=== PATIENT | female | born 1955 | race African-American/Black ===

== ENCOUNTER 2017-08-13 15:49 | Outpatient (CLI) | payer OTHER ==
--- NOTE | 2017-08-13 17:36 | RAD ---
CERVICAL SPINE 5 VIEWS: Date: 08/13/17 HISTORY: Cervical spine stenosis. Pain on both arms. COMPARISON: None. FINDINGS: On the AP projection, there is evidence of osteophyte formation. Predental space is normal. Odontoid process is suboptimally evaluated. In the neutral, flexion, and extension positions, no abnormal translational motion. Multilevel degene rative change with loss of disc space height and osteophyte formation. IMPRESSION: Degenerative changes of cervical spine. Refer to cervical spine CT performed earlier today for furthe r detail. POS: [facility]
== END 2017-08-13 15:50 | disposition home or self-care (01) ==
LOC: TBSIIMAG 15:49
PROVIDERS: ATTEND Surgery
DX: G95.20 Unspecified cord compression (principal); M48.02 Spinal stenosis, cervical region; M47.812 Spondylosis without myelopathy or radiculopathy, cervical region
CPT/HCPCS: 72050

== ENCOUNTER 2017-09-10 10:32 | Outpatient (CLI) | payer OTHER ==
--- NOTE | 2017-09-10 11:33 | RAD ---
2 VIEWS CHEST: Date: 09/10/17 COMPARISON: 10/21/15. HISTORY: Dyspnea. FINDINGS: Two views of the chest show normal sized cardiomediastinal silhouette. The MediPort is unchanged in p osition. There is elevation of the right hemidiaphragm, which is new compared to the prior exam. No c onsolidation, mass, or pleural effusion seen. IMPRESSION: Interval nonspecific elevation of right hemidiaphragm without acute cardiopulmonary process. POS: [facility]
== END 2017-09-10 10:33 | disposition home or self-care (01) ==
LOC: RAD 10:32
PROVIDERS: ATTEND Internal Medicine Critical Care Medicine
DX: R06.00 Dyspnea, unspecified (principal)
CPT/HCPCS: 71046

== ENCOUNTER 2017-09-11 06:02 | Inpatient (IN) | payer OTHER ==
[2017-09-10 13:34] VITALS: BMI 20.9
[2017-09-11 06:50] LABS: #Lymphocytes 3.2 thou/uL (1.20-3.40); #Monocytes 0.4 thou/uL (0.11-0.59); #Neutrophils 3.5 thou/uL (1.40-6.50); %Basophils 0.7 % (0.0-1.0); %Eosinophils 0.2 % (0.0-10.0); %Monocytes 5.1 % (0.0-10.0); %Neutrophils 49.1 % (42.0-75.0); Hemoglobin 12.8 g/dL (12.0-16.0); Mean Corpuscular Hemoglobin 30.8 pg (27.0-31.0); Mean Corpuscular Volume 93.5 fl (81.0-99.0); Mean Platelet Volume 5.9 fL (7.4-10.4); Platelet Count 492 thou/uL (130-400); RBC Distribution Width 11.7 % (11.5-14.5); Red Blood Cell (RBC) Count 4.14 mill/uL (4.20-5.40); White Blood Cell (WBC) Count 7.1 thou/uL (4.8-10.8)
[2017-09-11] MEDS ORDERED: Bacitracin Zinc Ointment 30 gm TUBE ONE (06:53)
[2017-09-11] MEDS ORDERED: Thrombin 5000 UNITS/5 ML VIAL ONE ×2 (06:53→11:08)
[2017-09-11 06:57] LABS: PTT 25.8 SEC (22.9-36.1); Prothrombin Time 13.3 SEC (12.0-14.7)
[2017-09-11] MEDS ORDERED: Sodium Chloride 0.9% 10 ML ONE (07:00)
[2017-09-11 07:04] LABS: Anion Gap 16 mmol/L (10-20); BUN (Urea Nitrogen) 13 mg/dL (9.8-20.1); Calc. Creatinine Clearance 42 mL/min (70-130); Calcium 8.5 mg/dL (7.8-10.44); Carbon Dioxide 24 mmol/L (23-31); Chloride 108 mmol/L (98-107); Estimated GFR-MDRD 49; Glucose 88 mg/dL (80-115); Potassium 3.5 mmol/L (3.5-5.1); Sodium 144 mmol/L (136-145)
[2017-09-11] MEDS ORDERED: Phenylephrine 10 MG/NS 250 ML 250 ML ONE (07:15)
[2017-09-11] MEDS ORDERED: Famotidine/PF 20 mg/2ml Vial ONE (07:15)
[2017-09-11] MEDS ORDERED: Albuterol Sulfate HFA (OR ONLY) ONE (07:15)
[2017-09-11] MEDS ORDERED: Albumin 5% 500 ML ONE (07:15)
[2017-09-11] MEDS ORDERED: Vecuronium 10 MG VIAL ONE ×2 (07:15→11:08)
[2017-09-11] MEDS ORDERED: CEFAZOLIN/Water 2 GM/20 ML SYRINGE ONE (07:32)
[2017-09-11] MEDS ORDERED: Fentanyl 250 MCG/5 ML VIAL ONE (07:37)
[2017-09-11] MEDS ORDERED: Midazolam HCl 2 mg/2 ml Vial ONE (07:45)
[2017-09-11] MEDS ORDERED: Fentanyl 100 MCG/2 ML VIAL ONE ×4 (09:36→11:51)
[2017-09-11] MEDS ORDERED: Promethazine HCl 25 MG/ML VIAL SLOW IVP PRN (09:44)
[2017-09-11] MEDS ORDERED: Ondansetron HCl/PF 4 MG/2 ML Vial IVP PRN ×2 (09:44→10:54)
[2017-09-11] MEDS ORDERED: Morphine Sulfate 2 MG/ML SYRINGE SLOW IVP PRN (09:44)
[2017-09-11] MEDS ORDERED: Promethazine HCl 25 MG/ML VIAL IM PRN ×2 (09:44→10:54)
[2017-09-11] MEDS ORDERED: HYDROmorphone 2 MG/ML VIAL SLOW IVP PRN (09:44)
[2017-09-11] MEDS ORDERED: Meperidine HCl/PF 25 MG/ML VIAL SLOW IVP PRN (09:44)
[2017-09-11] MEDS ORDERED: HYDROmorphone 0.5 MG/0.5 ML SYRINGE ONE (10:51)
[2017-09-11] MEDS ORDERED: Fleet Enema 133 ML BOT PR PRN (10:54)
[2017-09-11] MEDS ORDERED: Mag-Al 1200 mg/1200 mg/30 ML UDCUP PO PRN (10:54)
[2017-09-11] MEDS ORDERED: traMADol HCl 50 MG TAB PO PRN (10:54)
[2017-09-11] MEDS ORDERED: Acetaminophen 325 MG TAB PO PRN (10:54)
[2017-09-11] MEDS ORDERED: Milk Of Magnesia 30 ML UDCUP PO PRN (10:54)
[2017-09-11] MEDS ORDERED: Bisacodyl 10 MG SUPP PR PRN (10:54)
[2017-09-11] MEDS ORDERED: Famotidine 20 MG TAB PO PRN (10:57)
[2017-09-11] MEDS ORDERED: busPIRone HCl 10 MG TAB PO PRN (10:57)
[2017-09-11] MEDS ORDERED: Lidocaine 1% PF 5 ML VIAL ONE (11:08)
[2017-09-11] MEDS ORDERED: CEFAZOLIN 1 GM VIAL ONE (11:08)
[2017-09-11] MEDS ORDERED: PHENYLEPHRINE-NS 100 MCG/ML 10 ML SYRINGE ONE (11:08)
[2017-09-11] MEDS ORDERED: Sterile Water 10 ML VIAL ONE (11:08)
[2017-09-11] MEDS ORDERED: PROPOFOL 200 MG/20 ML VIAL ONE (11:08)
[2017-09-11] MEDS ORDERED: Ondansetron HCl/PF 4 MG/2 ML Vial ONE (11:08)
[2017-09-11] MEDS ORDERED: Glycopyrrolate 0.2 MG/ML 5 ML SYRINGE ONE (11:08)
[2017-09-11] MEDS ORDERED: Dexamethasone 20 MG/5 ML VIAL ONE (11:08)
[2017-09-11] MEDS: HYDROcodone/Acetaminophen 7.5/325 mg Tablet PO PRN ×2 (17:06→21:28)
[2017-09-11] MEDS: CEFAZOLIN/Water 2 GM/20 ML SYRINGE SLOW IVP SCH (17:10)
[2017-09-11] MEDS: tiZANidine HCl 4 MG TAB PO PRN ×2 (17:10→21:34)
[2017-09-11] MEDS: Morphine 4 MG/ML Carpuject SLOW IVP PRN (17:36)
[2017-09-11] MEDS: Varenicline Tartrate 0.5 MG TAB PO SCH (21:29)
--- NOTE | 2017-09-11 23:30 | OP ---
DATE: 09/11/2017 OR: 11 WOUND TYPE: Type 1 wound. SURGEON: Petros Piedra M.D. HOUSEKEEPER SUPERVISOR: Marcio Silva PA-C. PREPROCEDURE DIAGNOSES: Multilevel cervical stenosis with myelopathy and neurological decline. POSTPROCEDURE DIAGNOSES: Multilevel cervical stenosis with myelopathy and neurological decline. PROCEDURES: 1. C3, C4, C5 laminectomies, partial facetectomies and foraminotomies over the C3, C4, C5 nerve root s. 2. Placement of screw claude fixation, C3, C4, C5, C6 bilaterally for stabilization. 3. Arthrodesis local bone autograft obtained from same incision and allograft, C3, C4, C5, C6. 4. Posterolateral fusion C3, C4, C5, C6. DESCRIPTION OF PROCEDURE: After informed consent was obtained from the patient, patient brought to O R 12. Proper patient pause and identification was carried out. She was placed under excellent gener al endotracheal anesthesia, positioned prone on the operating room table. Following that securing th e head to the [place] brian and the group fitness assistant department head was secured in place. Proper patient pause and celeste ntification was carried out and all appropriate points were padded. Linear yen was drawn out over t he C3, C4, C5, C6 dorsal spines. This region was sterilely cleansed, prepared, and draped. Proper p atient pause and identification was carried out. The wound was then opened with combination of sharp , monopolar, and blunt dissection to expose the C3, C4, C5, C6 segments and localization film confirm ed the area of interest. We then performed C3, C4, C5 laminectomies, partial facetectomies, foramino tomies, and then screws that were placed at C3, C4, C5, C6 for fixation. Rods were placed and final tightening occurred. We were satisfied with our construct and decompression. Hemostasis was maximiz ed throughout. There was no spinal fluid leak. Small amount of vancomycin powder was placed in the wound and the wound was closed in anatomic layers. The patient then emerged from anesthesia. Meticu lous hemostasis was maximized throughout.
[2017-09-12] MEDS: Morphine 4 MG/ML Carpuject SLOW IVP PRN (00:24)
[2017-09-12] MEDS: CEFAZOLIN/Water 2 GM/20 ML SYRINGE SLOW IVP SCH ×2 (00:26→08:39)
[2017-09-12] MEDS: HYDROcodone/Acetaminophen 7.5/325 mg Tablet PO PRN ×3 (05:08→16:51)
[2017-09-12] MEDS: Folic Acid 1 MG TAB PO SCH (07:34)
[2017-09-12] MEDS: Loratadine 10 MG TAB PO SCH (07:34)
[2017-09-12] MEDS: Varenicline Tartrate 0.5 MG TAB PO SCH ×2 (07:34→19:59)
[2017-09-12] MEDS: Magnesium Oxide 400 MG TAB PO SCH (07:34)
[2017-09-12] MEDS: Acetaminophen/Codeine 30-300mg Tablet PO PRN ×2 (07:35→19:58)
--- NOTE | 2017-09-12 10:07 | PRG ---
DATE OF SERVICE: 09/12/2017 Ms. Wiggins is postoperative day 1 from cervical laminectomy and fusion. She is doing well. She state s her hand paresthesias are already improving. She is already starting to mobilize. We will work on increasing her oral intake. I anticipate another day in the hospital.
[2017-09-12] MEDS: Docusate 100 MG CAP PO PRN (12:58)
[2017-09-12] MEDS: tiZANidine HCl 4 MG TAB PO PRN (20:00)
--- NOTE | 2017-09-13 00:47 | EKG ---
Test Reason : PREOP Blood Pressure : / mmHG Vent. Rate : 070 BPM Atrial Rate : 070 BPM P-R Int : 190 ms QRS Dur : 076 ms QT Int : 394 ms P-R-T Axes : 044 082 076 degrees QTc Int : 425 ms Normal sinus rhythm Normal ECG When compared with ECG of 21-OCT-2015 09:06, No significant change was found Confirmed by TAMIKO CARRANZA, SEhsan ([id number]) on 09/13/2017 12:46:41 AM Referred By: JACOB Confirmed By:DR. Guadalupe MORRISON MD
[2017-09-13] MEDS: HYDROcodone/Acetaminophen 7.5/325 mg Tablet PO PRN ×5 (02:07→22:10)
[2017-09-13] MEDS: Folic Acid 1 MG TAB PO SCH (08:42)
[2017-09-13] MEDS: Loratadine 10 MG TAB PO SCH (08:42)
[2017-09-13] MEDS: Magnesium Oxide 400 MG TAB PO SCH (08:42)
[2017-09-13] MEDS: tiZANidine HCl 4 MG TAB PO PRN ×3 (08:42→21:07)
[2017-09-13] MEDS: Varenicline Tartrate 0.5 MG TAB PO SCH ×2 (10:29→21:08)
[2017-09-13] MEDS: Docusate 100 MG CAP PO PRN ×2 (12:36→21:07)
--- NOTE | 2017-09-13 13:44 | PRG ---
DATE OF SERVICE: 09/13/2017 Ms. Wiggins is postoperative day 2 from multi-level cervical laminectomy and fusion. She has not yet m obilized in the ng. We are going to work in that regard. She does feel as if her hands are feelin g better with less paresthesias. She has good strength in her upper and lower extremities and I feel as if she is doing well. She has a better fitting collar now also. We will hopefully plan on dismi ssal tomorrow.
[2017-09-14] MEDS: HYDROcodone/Acetaminophen 7.5/325 mg Tablet PO PRN ×3 (03:37→11:39)
[2017-09-14] MEDS: Loratadine 10 MG TAB PO SCH (07:40)
[2017-09-14] MEDS: tiZANidine HCl 4 MG TAB PO PRN (07:41)
[2017-09-14] MEDS: Folic Acid 1 MG TAB PO SCH (07:41)
[2017-09-14] MEDS: Magnesium Oxide 400 MG TAB PO SCH (07:41)
[2017-09-14] MEDS: Varenicline Tartrate 0.5 MG TAB PO SCH (07:42)
[2017-09-14 09:04] VITALS: TEMP 98.8
[2017-09-14 09:06] VITALS: BP 142/83
--- NOTE | 2017-09-14 09:10 | PRG ---
DATE OF SERVICE: 09/14/2017 Ms. Wiggins is now and postoperative day #3, having undergone a posterior cervical laminectomy and fusi on. The patient states she has had increased neck pain today since working with therapy yesterday. She denies sharp shooting pains into the arms or into the bilateral hands. She was able to walk roug hly 250 feet yesterday with a walker and did tolerate this well. She states her hands and arms do fe el better after surgery, but she does not yet feel more steady on her feet postoperatively. She eric ins with good strength in the bilateral upper and bilateral lower extremities. She is wearing a well -fitting pediatric [place] collar. Her incision was inspected and it is clean, dry, and intact witho ut any drainage, closed with emmanuel. It was dressed and the dressing was removed and replaced for i nspection. I discussed the patient's case with her daughter and hopefully we will plan for discharge later today with better pain control. I will check back, but again plan for discharge later today.
--- NOTE | 2017-09-17 13:39 | DIS ---
DATE OF ADMISSION: 09/11/2017 DATE OF DISCHARGE: 09/14/2017 DISCHARGE DIAGNOSES: 1. Cervical stenosis with myelopathy. 2. Neurologic decline. HOSPITAL COURSE: Ms. Wiggins was admitted to [facility] to undergo C3, C4, C5 posterior opal ectomies with C3-C6 posterior lateral fusion with Dr. Piedra. The patient tolerated the procedure we ll and was kept for several overnight stays for adequate pain control. She was later discharged home with her daughter. She noted some significant posterior neck pain, but otherwise improvement in her neurologic function including improved toe walking, improved function in the bilateral hands, and im proved function in her hands. At time of discharge, she had good strength in the bilateral upper ext remities and was ambulating with a walker. At the time of discharge, the patient was placed on Levaq uin postoperatively. Appropriate outpatient followup appointments were scheduled and patient educati on material was provided.
== END 2017-09-14 12:43 | disposition home or self-care (01) | DRG 473 ==
LOC: SURG A 06:02 → 3SE 11:40
PROVIDERS: ADMIT Surgery; ATTEND Surgery
PROC: 0RG2071 Fusion of 2 or more Cervical Vertebral Joints with Autologous Tissue Substitute, Posterior Approach, Posterior Column, Open Approach (ICD-10-PCS; principal; 2017-09-11)
DX: M47.12 Other spondylosis with myelopathy, cervical region (principal); M54.12 Radiculopathy, cervical region; M48.02 Spinal stenosis, cervical region
CPT/HCPCS: 36415; 71046; 76001; 80048; 85025; 85610; 85730; 93005; 93010; A4216; C1713; C1768; G8978-GP-CK; G8979-GP-CJ; J0131; J0690; J1100; J1170; J2001; J2250; J2270; J2405; J2704; J3010; J3370; J3490; L0174; P9045; S0028

== ENCOUNTER 2017-12-12 14:28 | Outpatient (CLI) | payer OTHER ==
--- NOTE | 2017-12-12 16:21 | RAD ---
CERVICAL SPINE THREE VIEWS: 12/12/17 HISTORY: 62-year-old female with history of cervical radiculopathy. Recent fall. COMPARISON: 06/12/17. FINDINGS: Postop laminectomy and posterior fixation of C3, C4, C5 and C6 with extensive disc osteophytosis. C7 and C7-T1 are not completely seen on the lateral view. Upper odontoid and portions of C1 are obscured or partially obscured on the AP open mouth view. No significant prevertebral soft tissue swelling. IMPRESSION: Extensive dorsal postoperative changes from C3 through C6. Extensive spondylosis. No acute fracture o r dislocation involving the visualized C-spine. POS: [facility]
== END 2017-12-12 14:29 | disposition home or self-care (01) ==
LOC: TBSIIMAG 14:28
PROVIDERS: ATTEND Surgery
DX: M47.22 Other spondylosis with radiculopathy, cervical region (principal); Z98.1 Arthrodesis status
CPT/HCPCS: 72040

== ENCOUNTER 2018-02-05 10:48 | Outpatient (CLI) | payer OTHER ==
--- NOTE | 2018-02-05 12:20 | RAD ---
CHEST PA AND LATERAL: History: 62-year-old female with history of dyspnea. Comparison: 09-10-07 FINDINGS: Left subclavian catheter and injection port. Stable right hemidiaphragm elevation. Stable patchy mild increased interstitial markings bilaterally. No confluent pneumonia, overt edema, or pleural effusio n. IMPRESSION: Stable chest with some minimally increased interstitial markings bilaterally and right hemidiaphragm elevation. No new process. POS: [facility]
== END 2018-02-05 10:49 | disposition home or self-care (01) ==
LOC: RAD 10:48
PROVIDERS: ATTEND Internal Medicine Critical Care Medicine
DX: R06.00 Dyspnea, unspecified (principal)
CPT/HCPCS: 71046

== ENCOUNTER 2019-01-07 13:48 | Outpatient (CLI) | payer OTHER ==
--- NOTE | 2019-01-07 14:35 | RAD ---
CHEST PA AND LATERAL: HISTORY: Dyspnea. COMPARISON: 02/05/2018 FINDINGS: There has been interval removal of the left-sided Port-A-Cath. There is continued elevation of the r ight hemidiaphragm. The heart size is normal. No lobar consolidation is seen. There is blunting of the left costophrenic angle, which may be due to a small effusion or scarring. No lobar consolidati on or pneumothoraces is seen. POS: [facility]
== END 2019-01-07 13:49 | disposition home or self-care (01) ==
LOC: RAD 13:48
PROVIDERS: ATTEND Internal Medicine Critical Care Medicine
DX: R06.00 Dyspnea, unspecified (principal)
CPT/HCPCS: 71046

== ENCOUNTER 2019-01-14 07:01 | Inpatient (IN) | payer OTHER ==
--- NOTE | 2019-01-14 09:42 | PDOC.FPRHP ---
- History of Present Illness Chief Complaint: AMS, headache History of Present Illness: 63 y/o F with PMHx adenocarcinoma of lung s/p chemo and resection, HTN presents due to AMS and headache. She reports that she was unable to sleep at night because of a headache that started suddenly in her R frontal region around 3 am. She had associated blurry vision, L arm weakness, slurred speech, and confusion. She went to the [place] ED and was found to have brain mets. She has given dexamethasone and at the time of my evaluation the patient was less confused and her symptoms had improved some. She reports the headache is much less severe, she no longer has blurry vision, and she is now able to lift her arm above her head. She is still a little confused and was under the impression she was still in [place], but she was otherwise oriented fully. ED Course: Seen in [place] ED and found to have likely brain mets in setting of headache and AMS and given 10mg IV dexamethasone. Patient then transferred to this ED. - Allergies/Adverse Reactions Allergies Allergy/AdvReac Type Severity Reaction Status Date / Time No Known Drug Allergies Allergy Verified 09/10/17 13:23 - Home Medications Medication Instructions Recorded Confirmed Type Cetirizine HCl [Zyrtec] 10 mg PO DAILY 06/01/15 01/14/19 History Esomeprazole Magnesium [Nexium] 40 mg PO QAM-WM 06/01/15 01/14/19 History busPIRone HCl [Buspar] 10 mg PO TID PRN 06/01/15 01/14/19 History Diltiazem HCl [Cartia XT] 240 mg PO HS 09/10/17 01/14/19 History Magnesium Oxide [Mag-Oxide] 400 mg PO DAILY 09/10/17 01/14/19 History - History PMHx: 1. Adenocarcinoma of lung 2. HTN 3. GERD 4. Anxiety PSHx: L foot tendon repair, BTL, R forearm tendon repair, R elbow, L wrist tendon repair, Bilateral lung wedge resections FHx: Mom - liver disease, Dad - Throat cancer Social: daily EtOH use about 3-4 beers/day, tobacco use 1/2 ppd for 47 years. Denies drug use, but positive cocaine, marijuana, and opiate screen on UDS. PCP: Dr. Byers - Review of Systems General: denies: fever/chills, weight/appetite/sleep changes Eyes: reports: vision changes (blurry vision). denies: eye pain ENT: denies: nasal congestion, rhinorrhea Respiratory: denies: cough, shortness of breath Cardiovascular: denies: chest pain, palpitation, edema Gastrointestinal: denies: nausea, vomiting, diarrhea, constipation, abdominal pain Genitourinary: denies: incontinence, dysuria Skin: denies: rashes, lesions Musculoskeletal: denies: pain, tenderness Neurological: reports: weakness (Left arm). denies: numbness, syncope, seizure Psychological: reports: anxiety. denies: depression - Vital signs BP: 122/103 HR: 97 RR: 18 Tmax: 98.0 Pox: 97% on RA Wt: 59.9 kg - Physical Exam Constitutional: NAD, awake, alert and oriented, well developed HEENT: normocephalic and atraumatic, PERRLA, EOMI, conjunctiva clear, grossly normal vision, grossly normal hearing, normal nasal mucosa, MMM, oropharynx clear, other (swelling and tenderness in the gums on the left side) Neck: supple, FROM Heart: RRR, normal S1/S2, no murmurs/rubs/gallops, pulses present, no edema Lungs: CTAB (poor air movement), no respiratory distress, no rales/rhonchi, no wheezing Abdomen: soft, non-tender, bowel sounds present, no masses/distention Musculoskeletal: normal structure, normal tone Neurological: no focal deficit, CN II-XII intact, normal sensation, DTRs 2+ -Neurological: cerebellum intact, 5/5 muscle strength in all extremities, no clonus Skin: no rash/lesions, good turgor Heme/Lymphatic: no unusual bruising or bleeding, no purpura Psychiatric: normal mood and affect, good judgment and insight, intact recent and remote memory FMR H&P: Results - Labs Lab results: Laboratory Tests 01/14/19 01/14/19 01/14/19 04:18 04:18 04:18 WBC 9.3 Hgb 13.2 Hct 40.8 MCV 89.1 Plt Count 357 PT INR APTT Sodium 132 L Potassium 3.9 Chloride 99 Carbon Dioxide 20 L Anion Gap 17 BUN 15 Creatinine 1.47 H Estimated GFR (MDRD) 43 Glucose 107 Calcium 9.4 Total Bilirubin 0.2 AST 20 ALT 14 Alkaline Phosphatase 76 Creatine Kinase Troponin I Less than 0.010 TSH 3rd Generation Urine Opiates Screen Ur Oxycodone Screen Urine Methadone Screen Ur Propoxyphene Screen Ur Barbiturates Screen Ur Tricyclics Screen Ur Phencyclidine Scrn Ur Amphetamines Screen U Methamphetamines Scrn U Benzodiazepines Scrn U Cocaine Metab Screen U Cannabinoids Screen 01/14/19 01/14/19 01/14/19 04:18 04:18 04:18 WBC Hgb Hct MCV Plt Count PT 13.0 INR 1.0 APTT 30.8 Sodium Potassium Chloride Carbon Dioxide Anion Gap BUN Creatinine Estimated GFR (MDRD) Glucose Calcium Total Bilirubin AST ALT Alkaline Phosphatase Creatine Kinase 68 Troponin I TSH 3rd Generation 2.5697 Urine Opiates Screen Ur Oxycodone Screen Urine Methadone Screen Ur Propoxyphene Screen Ur Barbiturates Screen Ur Tricyclics Screen Ur Phencyclidine Scrn Ur Amphetamines Screen U Methamphetamines Scrn U Benzodiazepines Scrn U Cocaine Metab Screen U Cannabinoids Screen 01/14/19 Unknown WBC Hgb Hct MCV Plt Count PT INR APTT Sodium Potassium Chloride Carbon Dioxide Anion Gap BUN Creatinine Estimated GFR (MDRD) Glucose Calcium Total Bilirubin AST ALT Alkaline Phosphatase Creatine Kinase Troponin I TSH 3rd Generation Urine Opiates Screen Detected H Ur Oxycodone Screen Not Detected Urine Methadone Screen Not Detected Ur Propoxyphene Screen Not Detected Ur Barbiturates Screen Not Detected Ur Tricyclics Screen Not Detected Ur Phencyclidine Scrn Not Detected Ur Amphetamines Screen Not Detected U Methamphetamines Scrn Not Detected U Benzodiazepines Scrn Not Detected U Cocaine Metab Screen Detected H U Cannabinoids Screen Detected H - EKG Interpretation EKst degree AV block, normal rate, no ST/T wave changes - Radiology Interpretation CT scan - head Status: report reviewed by me Additional comment: Hypodense nodule measuring 1.2 cm in cortex of R parietal lobe with vasogenic edema. Focal subcortical vasogenic edema in L frontal lobe. Worsening of chronic small vessel ischemia. FMR H&P: A/P - Problem List (1) Acute encephalopathy Current Visit: Yes Status: Acute Code(s): G93.40 - ENCEPHALOPATHY, UNSPECIFIED (2) Metastatic cancer to brain Current Visit: Yes Status: Acute Code(s): C79.31 - SECONDARY MALIGNANT NEOPLASM OF BRAIN (3) Hyponatremia Current Visit: Yes Status: Acute Code(s): E87.1 - HYPO-OSMOLALITY AND HYPONATREMIA (4) Lung cancer Current Visit: No Status: Acute Code(s): C34.90 - MALIGNANT NEOPLASM OF UNSP PART OF UNSP BRONCHUS OR LUNG (5) Tobacco abuse Current Visit: Yes Status: Acute Code(s): Z72.0 - TOBACCO USE (6) Alcohol abuse Current Visit: Yes Status: Acute Code(s): F10.10 - ALCOHOL ABUSE, UNCOMPLICATED (7) Drug abuse Current Visit: Yes Status: Acute Code(s): F19.10 - OTHER PSYCHOACTIVE SUBSTANCE ABUSE, UNCOMPLICATED (8) Hypertension Current Visit: Yes Status: Acute Code(s): I10 - ESSENTIAL (PRIMARY) HYPERTENSION (9) Anxiety Current Visit: Yes Status: Acute Code(s): F41.9 - ANXIETY DISORDER, UNSPECIFIED (10) CKD (chronic kidney disease) stage 3, GFR 30-59 ml/min Current Visit: Yes Status: Acute Code(s): N18.3 - CHRONIC KIDNEY DISEASE, STAGE 3 (MODERATE) (11) Dental abscess Current Visit: Yes Status: Acute Code(s): K04.7 - PERIAPICAL ABSCESS WITHOUT SINUS - Plan Acute Encephalopathy 2/2 new brain mets with vasogenic edema found on CT scan. Patient's symptoms improved after loading dose of 10mg dexamethasone. -Continue dexamethasone 4mg q6h -NPO pending swallow eval -Monitor for changes in neurologic status with q4h neuro checks New Brain Metastases with Vasogenic Edema -Dr. Desai with oncology was consulted by the ED, appreciate recs -Dexamethasone as above -Possible neurosurgery consult pending onc recs -MRI brain with and without contrast to further characterize lesions Lung Cancer Patient reports chemotherapy followed by resection. She states she had two masses, one on each side of her lungs. She reports that they noted some lymph nodes and removed some during her surgery in [place], but she thinks she may have had some found later that were cancerous. She is unsure what stage her cancer was. Per the patients PCP it is Adenocarcinoma. She has an extensive tobacco smoking hx. -Dr. Desai with onc was consulted, appreciate recs Hyponatremia Could be 2/2 SIADH from malignancy. It is mild at this time. -Will monitor -Check urine sodium and osm Hypertension -Continue home diltiazem GERD -Continue PPI Anxiety -Continue busbar CKDIII Stable -Will monitor Polysubstance Abuse Patient positive for cocaine, marijuana, and opioids on UDS and has tobacco and EtOH abuse hx. -ASE protocol -Nicotine patches -Substance cessation counseling Recurrent dental abscesses Currently complaining of one. Apparently according to her PCP, she cannot afford dental care so she gets these frequently and then dose a course of amoxicillin and they improve. Her PCP prescribed amoxicillin yesterday, but she hasn't started it yet. -Continue amoxicillin Code status: Full VTE ppx: Lovenox Dispo: Admit to oncology Prognosis: poor Disposition/LOS: Admit to oncology Length of stay likely greater than 2 days
[2019-01-14] MEDS ORDERED: Gadobenate Dimeglumine 529 MG/1 ML (20ML VIAL) ONE (11:35)
[2019-01-14] MEDS ORDERED: Acetaminophen 325 MG TAB PO PRN (12:23)
[2019-01-14 12:59] VITALS: BMI 20.4
[2019-01-14] MEDS ORDERED: Nicotine 14 MG PATCH TD SCH ×2 (14:00→16:30)
[2019-01-14] MEDS: busPIRone HCl 10 MG TAB PO PRN (15:17)
[2019-01-14] MEDS: Dexamethasone 4 mg/ml Vial SLOW IVP SCH ×2 (15:18→20:49)
[2019-01-14] MEDS: AMOXicillin 250 MG CAP PO SCH ×2 (15:18→20:49)
--- NOTE | 2019-01-14 17:09 | MRI ---
MRI BRAIN WITH AND WITHOUT CONTRAST: DATE: 01/14/2019 HISTORY: 63-year-old female with lung cancer and abnormal brain CT, suspicious for brain metastasis. COMPARISON: No prior brain MRIs TECHNIQUE: Multiplanar, multisequence MRI of the brain performed pre- and post-IV injection of gadolinium based contrast agent. FINDINGS: Heterogeneously enhancing, partially necrotic 16 x 14 x 12 mm right posterior parietal intra-axial ma ss with surrounding vasogenic edema. Similarly enhancing left lateral parietal intra-axial mass measuring 10 x 9 x 9 mm, with surrounding vasogenic edema. Faint, small, patchy focus of enhancement measuring approximately 6 x 4 mm in the lateral aspect of t he right anterior temporal lobe, visible only on the T1 MPR sequence and its coronal and sagittal reconstructions, not on the conventional T1-weighted axial image. Uncertain whether this represents a metastatic focus, capillary telangiectasia, or artifact. No mass effect or midline shift. There is minimal hemorrhage within the right parietal metastatic les ion, but not elsewhere. No obstructive hydrocephalus. Moderate chronic ischemic white matter changes of the periventricular white matter and deep white matter. Chronic ischemic white matter [place] [facility] [place]. No acute infarction. IMPRESSION: 1) at least 2 metastatic brain lesions, one in each parietal lobe. 2.) Moderate chronic ischemic white matter changes due to microvascular atherosclerosis.
[2019-01-15] MEDS: Dexamethasone 4 mg/ml Vial SLOW IVP SCH ×4 (02:14→20:17)
[2019-01-15 06:28] LABS: #Lymphocytes 1.3 thou/uL (1.20-3.40); #Monocytes 0.1 thou/uL (0.11-0.59); #Neutrophils 10.5 thou/uL (1.40-6.50); %Basophils 0.1 % (0.0-1.0); %Eosinophils 0.2 % (0.0-10.0); %Lymphocytes 10.8 % (21.0-51.0); %Monocytes 0.5 % (0.0-10.0); %Neutrophils 88.5 % (42.0-75.0); Hemoglobin 14.1 g/dL (12.0-16.0); Mean Corpuscular HGB CONC 34.7 g/dL (32.0-36.0); Mean Corpuscular Volume 89.4 fL (78.0-98.0); Mean Platelet Volume 7.1 fL (7.4-10.4); Platelet Count 349 thou/uL (130-400); RBC Distribution Width 11.8 % (11.5-14.5); Red Blood Cell (RBC) Count 4.56 mill/uL (4.20-5.40); White Blood Cell (WBC) Count 11.8 thou/uL (4.8-10.8)
[2019-01-15 06:48] LABS: Anion Gap 16 mmol/L (10-20); BUN (Urea Nitrogen) 15 mg/dL (9.8-20.1); Calc. Creatinine Clearance 46 mL/min (70-130); Calcium 10.2 mg/dL (7.8-10.44); Carbon Dioxide 20 mmol/L (23-31); Chloride 104 mmol/L (98-107); Estimated GFR-MDRD 57; Glucose 139 mg/dL (80-115); Potassium 3.7 mmol/L (3.5-5.1); Sodium 136 mmol/L (136-145)
--- NOTE | 2019-01-15 07:42 | PDOC.EVN ---
Addendum - Attending - Attending Attestation Date/Time: 01/15/19 1195 I personally evaluated the patient and discussed the management with Dr. Currie. I agree with the History, Examination, Assessment and Plan documented in her progress note with any addition or exceptions noted below. Patient improved after decadron yesterday. Improvement in headache and neuro function. MRI confirmed b/l parietal lobe mets, likely from her lung adenocarcinoma. Oncology already consulted, will likely get Rad Onc and NSGY on board today to see if any inpatient interventions can be pursued.
[2019-01-15] MEDS ORDERED: traMADol HCl 50 MG TAB PO PRN (09:11)
--- NOTE | 2019-01-15 09:17 | PDOC.FM ---
- Subjective Subjective: Patient reports that mental status changes have improved. Denies any further confusion, weakness, blurry vision, slurred speech. Does report a severe headache that is not relieved with tylenol. - Objective MAR Reviewed: Yes Vital Signs & Weight: Vital Signs (12 hours) Temp Pulse Resp BP Pulse Ox 01/15/19 07:41 98.3 F 83 16 131/82 97 01/15/19 04:00 98.0 F 71 18 134/85 99 01/15/19 00:06 98.3 F 101 H 21 H 116/71 100 Weight Weight 59.08 kg I&O: 01/14/19 01/15/19 01/16/19 06:59 06:59 06:59 Intake Total 500 Output Total 300 Balance 200 Result Diagrams: 01/15/19 05:26 01/15/19 05:26 Phys Exam - Physical Examination Constitutional: NAD HEENT: moist MMs, sclera anicteric Respiratory: no wheezing, no rales, no rhonchi, clear to auscultation bilateral Cardiovascular: RRR, no significant murmur, no rub Gastrointestinal: soft, non-tender, positive bowel sounds Musculoskeletal: no edema, pulses present Neurological: non-focal, normal sensation, moves all 4 limbs Psychiatric: normal affect, A&O x 3 Skin: normal turgor, cap refill <2 seconds Dx/Plan (1) Acute encephalopathy Code(s): G93.40 - ENCEPHALOPATHY, UNSPECIFIED Status: Resolved (2) Metastatic cancer to brain Code(s): C79.31 - SECONDARY MALIGNANT NEOPLASM OF BRAIN Status: Acute (3) Hyponatremia Code(s): E87.1 - HYPO-OSMOLALITY AND HYPONATREMIA Status: Acute (4) Lung cancer Code(s): C34.90 - MALIGNANT NEOPLASM OF UNSP PART OF UNSP BRONCHUS OR LUNG Status: Acute (5) Tobacco abuse Code(s): Z72.0 - TOBACCO USE Status: Acute (6) Alcohol abuse Code(s): F10.10 - ALCOHOL ABUSE, UNCOMPLICATED Status: Acute (7) Drug abuse Code(s): F19.10 - OTHER PSYCHOACTIVE SUBSTANCE ABUSE, UNCOMPLICATED Status: Acute (8) Hypertension Code(s): I10 - ESSENTIAL (PRIMARY) HYPERTENSION Status: Acute (9) Anxiety Code(s): F41.9 - ANXIETY DISORDER, UNSPECIFIED Status: Acute (10) CKD (chronic kidney disease) stage 3, GFR 30-59 ml/min Code(s): N18.3 - CHRONIC KIDNEY DISEASE, STAGE 3 (MODERATE) Status: Acute (11) Dental abscess Code(s): K04.7 - PERIAPICAL ABSCESS WITHOUT SINUS Status: Acute - Plan Plan: Acute Encephalopathy, improved 2/2 new brain mets with vasogenic edema found on CT scan. Patient's symptoms improved after loading dose of 10mg dexamethasone. -Continue dexamethasone 4mg q6h -Consulted Neurosurgery, appreciate recs -Monitor for changes in neurologic status New Brain Metastases with Vasogenic Edema Brain MRI confirmed two masses with surrounding vasogenic edema -Dr. Desai with oncology was consulted by the ED, appreciate recs -Dr. Joy with neurosurgery was consulted, appreciate recs -Dexamethasone as above Lung Cancer Patient reports chemotherapy followed by resection. She states she had two masses, one on each side of her lungs. She reports that they noted some lymph nodes and removed some during her surgery in [place], but she thinks she may have had some found later that were cancerous. She is unsure what stage her cancer was. Per the patients PCP it is Adenocarcinoma. She has an extensive tobacco smoking hx. -Dr. Desai with onc was consulted, appreciate recs Hyponatremia, resolved Could be 2/2 SIADH from malignancy. It is mild at this time. -Will monitor Hypertension -Continue home diltiazem GERD -Continue PPI Anxiety -Continue busbar CKDIII Stable -Will monitor Polysubstance Abuse Patient positive for cocaine, marijuana, and opioids on UDS and has tobacco and EtOH abuse hx. -ASE protocol -Nicotine patches -Substance cessation counseling Recurrent dental abscesses Currently complaining of one. Apparently according to her PCP, she cannot afford dental care so she gets these frequently and then dose a course of amoxicillin and they improve. Her PCP prescribed amoxicillin the day prior to admission -Continue amoxicillin Code status: Full VTE ppx: Lovenox Dispo: pending oncology and neurosurgery recs
[2019-01-15] MEDS: Loratadine 10 MG TAB PO SCH (09:21)
[2019-01-15] MEDS: AMOXicillin 250 MG CAP PO SCH ×3 (09:21→20:18)
[2019-01-15] MEDS: Magnesium Oxide 400 MG TAB PO SCH (09:21)
[2019-01-15] MEDS: Enoxaparin Sodium 40 MG/0.4 ML SYRINGE SC SCH (09:22)
[2019-01-15] MEDS: Acetaminophen 500 MG TAB PO SCH ×2 (11:44→18:06)
[2019-01-15] MEDS: busPIRone HCl 10 MG TAB PO PRN (11:44)
--- NOTE | 2019-01-15 14:52 | HP ---
I did this physical exam on 01/14 at approximately 12 o'clock noon. I examined the patient. I discussed the case with Dr. Aparna Currie and agree with her assessment and plan. HISTORY OF PRESENT ILLNESS: Briefly, Ms. Wiggins is a pleasant 63-year-old black female with a history of adenocarcinoma of the lung with chemotherapy and resection. She presented to an [facility] ER with severe headache and altered mental status. CT [facility] demonstrated possible brain mets from her lung malignancy. She was transferred to our institution for further treatment. By the time I examine Ms. Wiggins, she had a dose of dexamethasone and her headache was much improved. She had no obvious focal deficits and her sensorium was much clearer. PHYSICAL EXAMINATION: VITAL SIGNS: Her blood pressure was 122/98, her pulse rate was 88 and regular. She was afebrile. Respirations are 18 and not labored. GENERAL: As stated, she was awake, alert, and in no acute distress. CARDIAC: Heart rhythm is regular without gallop or murmur noted. LUNGS: Clear. No rales, rhonchi, or wheezes. No evidence of respiratory distress. ABDOMEN: Flat and soft. No guarding, rebound, or rigidity. NEUROLOGICAL: She had no focal deficits and appeared to have a clear sensorium. EXTREMITIES: No edema. LABORATORY DATA: CBC was 11,800, hemoglobin 14.1, hematocrit 40.8 with an MCV of 89. Her chemistry, sodium 136, potassium 3.7, chloride 104, bicarb 20, BUN 15, and creatinine 1.16. 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 PLAN: Admit. Continue dexamethasone. Consult with Oncology. Job ID: [id number]
[2019-01-15] MEDS ORDERED: Nicotine 14 MG PATCH TD SCH (18:30)
[2019-01-15] MEDS: levETIRAcetam 500 MG TAB PO SCH (20:20)
[2019-01-16] MEDS: Acetaminophen 500 MG TAB PO SCH ×2 (00:34→05:32)
[2019-01-16] MEDS: Dexamethasone 4 mg/ml Vial SLOW IVP SCH ×2 (02:43→09:45)
[2019-01-16 05:43] LABS: #Lymphocytes 1.2 thou/uL (1.20-3.40); #Monocytes 0.3 thou/uL (0.11-0.59); #Neutrophils 15.6 thou/uL (1.40-6.50); %Basophils 0.1 % (0.0-1.0); %Eosinophils 0.1 % (0.0-10.0); %Lymphocytes 6.9 % (21.0-51.0); %Monocytes 1.7 % (0.0-10.0); %Neutrophils 91.2 % (42.0-75.0); Hemoglobin 12.6 g/dL (12.0-16.0); Mean Corpuscular HGB CONC 33.9 g/dL (32.0-36.0); Mean Corpuscular Hemoglobin 30.8 pg (27.0-31.0); Mean Corpuscular Volume 90.7 fL (78.0-98.0); Mean Platelet Volume 7.1 fL (7.4-10.4); Platelet Count 333 thou/uL (130-400); RBC Distribution Width 11.7 % (11.5-14.5); Red Blood Cell (RBC) Count 4.09 mill/uL (4.20-5.40); White Blood Cell (WBC) Count 17.1 thou/uL (4.8-10.8)
[2019-01-16 06:11] LABS: Anion Gap 11 mmol/L (10-20); BUN (Urea Nitrogen) 23 mg/dL (9.8-20.1); Calc. Creatinine Clearance 41 mL/min (70-130); Calcium 9.9 mg/dL (7.8-10.44); Carbon Dioxide 25 mmol/L (23-31); Chloride 103 mmol/L (98-107); Estimated GFR-MDRD 50; Glucose 149 mg/dL (80-115); Potassium 3.8 mmol/L (3.5-5.1); Sodium 135 mmol/L (136-145)
--- NOTE | 2019-01-16 06:16 | PDOC.FM ---
- Subjective Subjective: Patient feeling well this AM. Denies any new weakness, numbness, vision changes. Reports her headache has resolved. Tolerating PO without N/V. - Objective MAR Reviewed: Yes Vital Signs & Weight: Vital Signs (12 hours) Temp Pulse Resp BP BP Pulse Ox 01/16/19 04:30 120/75 01/16/19 03:12 97.8 F 67 20 120/75 100 01/16/19 01:00 121/76 01/15/19 23:32 98.2 F 78 20 121/76 99 01/15/19 21:29 113/74 01/15/19 20:19 88 133/74 01/15/19 20:00 99 01/15/19 19:30 98.1 F 88 20 113/74 98 Weight Admit Weight 59.08 kg Weight 59.08 kg I&O: 01/14/19 01/15/19 01/16/19 06:59 06:59 06:59 Intake Total 500 1720 Output Total 300 Balance 200 1720 Result Diagrams: 01/16/19 05:08 01/16/19 05:08 Phys Exam - Physical Examination Constitutional: NAD HEENT: moist MMs, sclera anicteric Respiratory: no wheezing, no rales, no rhonchi, clear to auscultation bilateral Cardiovascular: RRR, no significant murmur, no rub Gastrointestinal: soft, non-tender, no distention, positive bowel sounds Musculoskeletal: no edema, pulses present Neurological: non-focal, moves all 4 limbs Psychiatric: normal affect, A&O x 3 Skin: normal turgor, cap refill <2 seconds Dx/Plan (1) Acute encephalopathy Code(s): G93.40 - ENCEPHALOPATHY, UNSPECIFIED Status: Resolved (2) Metastatic cancer to brain Code(s): C79.31 - SECONDARY MALIGNANT NEOPLASM OF BRAIN Status: Acute (3) Hyponatremia Code(s): E87.1 - HYPO-OSMOLALITY AND HYPONATREMIA Status: Acute (4) Lung cancer Code(s): C34.90 - MALIGNANT NEOPLASM OF UNSP PART OF UNSP BRONCHUS OR LUNG Status: Acute (5) Tobacco abuse Code(s): Z72.0 - TOBACCO USE Status: Acute (6) Alcohol abuse Code(s): F10.10 - ALCOHOL ABUSE, UNCOMPLICATED Status: Acute (7) Drug abuse Code(s): F19.10 - OTHER PSYCHOACTIVE SUBSTANCE ABUSE, UNCOMPLICATED Status: Acute (8) Hypertension Code(s): I10 - ESSENTIAL (PRIMARY) HYPERTENSION Status: Acute (9) Anxiety Code(s): F41.9 - ANXIETY DISORDER, UNSPECIFIED Status: Acute (10) CKD (chronic kidney disease) stage 3, GFR 30-59 ml/min Code(s): N18.3 - CHRONIC KIDNEY DISEASE, STAGE 3 (MODERATE) Status: Acute (11) Dental abscess Code(s): K04.7 - PERIAPICAL ABSCESS WITHOUT SINUS Status: Acute - Plan Plan: Acute Encephalopathy, improved 2/2 new brain mets with vasogenic edema found on CT scan. Patient's symptoms improved after loading dose of 10mg dexamethasone. -Continue dexamethasone -Consulted Neurosurgery, appreciate recs -Monitor for changes in neurologic status New Brain Metastases with Vasogenic Edema Brain MRI confirmed two masses with surrounding vasogenic edema -Dr. Desai with oncology was consulted. Discussed case with her and she recommended patient to be discharged with outpatient workup including staging and radiation per Dr. Sanchez. -Spoke to Dr. Sanchez who said he will set her up with outpatient appt in his office tomorrow. Will proceed with radiation therapy. -Dr. Joy with neurosurgery was consulted, started keppra for seizure ppx. Recommended no surgery at this time. -Dexamethasone Lung Cancer Patient reports chemotherapy followed by resection. She states she had two masses, one on each side of her lungs. She reports that they noted some lymph nodes and removed some during her surgery in [place], but she thinks she may have had some found later that were cancerous. She is unsure what stage her cancer was. Per the patients PCP it is Adenocarcinoma. She has an extensive tobacco smoking hx. -Dr. Desai with onc was consulted, will see patient outpatient. Hyponatremia, resolved Could be 2/2 SIADH from malignancy. It is mild at this time. -Will monitor Hypertension Stable -Continue home diltiazem GERD -Continue PPI Anxiety -Continue busbar CKDIII Stable -Will monitor Polysubstance Abuse Patient positive for cocaine, marijuana, and opioids on UDS and has tobacco and EtOH abuse hx. -ASE protocol -Nicotine patches -Substance cessation counseling Recurrent dental abscesses Currently complaining of one. Apparently according to her PCP, she cannot afford dental care so she gets these frequently and then dose a course of amoxicillin and they improve. Her PCP prescribed amoxicillin the day prior to admission -Continue amoxicillin Code status: Full VTE ppx: Lovenox Dispo: d/c today with po dexamethasone and f/u with Dr. Desai and Dr. Sanchez outpatient Addendum - Attending - Attending Attestation Date/Time: 01/16/19 9961 I personally evaluated the patient and discussed the management with Dr. Currie. I agree with the History, Examination, Assessment and Plan documented above with any addition or exceptions noted below. Patient reports feeling significantly improved. Continue on Decadron for brain mets. Continue pain control. Awaiting recs from Oncology and NSGY and further mgmt per those recs.
--- NOTE | 2019-01-16 07:12 | PRG ---
DATE OF SERVICE: 01/16/2019 I personally interviewed and examined the patient, reviewed documentation of Mallory Guerra PA-C. Date of service was 01/15/2019 and 01/16/2019. I am following up with Ms. Wiggins this morning after seeing her yesterday afternoon. I discussed the case Dr. Duran Sanchez, Radiation Oncology and Medical Oncology Services. Ms. Wiggins is a 63-year-old woman with known bilateral upper lobe adenocarcinoma of the lung, treated with thoracoscopic wedge resections and chemotherapy. She got no radiation. On the second surgery, there was a positive lymphovascular invasion. During the first surgery, there was question whether the first lymph node was positive or not. It was felt to be lung tissue rather than a lymph node. She has been undergoing CT and PET scan surveillance. From the history, Ms. Wiggins was found with altered mental status. She slowly cleared during her hospital evaluation. I think she was postictal from a seizure. Imaging of the brain revealed two and possibly three areas of concern for metastatic disease. The two obvious areas were the anterior parietal lobe on the left and the posterior parietal lobe on the right. Questionable areas of temporal lobe on the left. There is some vasogenic edema surrounding, but not a significant amount. These do not look like abscesses. By the time I met her, Ms. Wiggins's neurological examination was back to normal. She is awake and conversant and had no focal neurological deficit. I had a long discussion with her. If our Oncology colleagues are satisfied that this is metastatic disease and do not need tissue to continue treatment, then I would recommend stereotactic radiosurgery for the two larger lesions and consideration of stereotactic radiosurgery to the questionable area in the left temporal lobe. If tissues needed, the right posterior occipital lobe lesion would be the safest to remove. Job ID: [id number]
--- NOTE | 2019-01-16 09:02 | CON ---
DATE OF CONSULTATION: HISTORY OF PRESENT ILLNESS: Ms. Wiggins is a 63-year-old female, she was brought to [facility] following an emergency room visit to [facility] due to altered mental status. While at the [facility], a CT head was done showing 2 brain lesions. She was transferred to [facility]. An MRI of the brain was done today which showed 2 lesions in each parietal lobe with surrounding vasogenic edema. Neurosurgery has been consulted regarding these lesions. The patient has history of adenocarcinoma. She has been treated with chemotherapy at [place] and had surgery in [place]. Upon admission, it was also learned that the patient was positive for cocaine, opiates, and THC. The patient was given dexamethasone as well, started on steroids and today her cognition has improved. She denies complaints. Denies weakness. No changes in vision, changes in hearing. Speech is spontaneous and fluent. She states that she had a headache yesterday, but it is gone today when I see her in her hospital room. She is moving all extremities well. There are no focal motor or sensory deficits. REVIEW OF SYSTEMS: A 10-point review of systems has been completed and is negative other than stated in the above HPI. PAST MEDICAL HISTORY: Gastrointestinal disease, GERD, alcohol abuse, hypertension, history of stage IV adenocarcinoma of the lung. PAST SURGICAL HISTORY: Bilateral lung resection, orthopedic surgery of the left foot, tendon repair, surgery for tubal ligation, right elbow, right wrist tendon repair, left forearm repair, history of neck surgery. PSYCHIATRIC HISTORY: The patient states anxiety and panic attacks. SOCIAL HISTORY: The patient drinks every day, less than 5 drinks per day. Denies drug use. Currently uses tobacco, cigarettes, smoked for 30 years, states a half pack a day. Lives at home with . The patient denies drug use; however, urine drug screen positive for opiates, cocaine, and THC. PHYSICAL EXAMINATION: VITAL SIGNS: Temperature 98.5, heart rate 96, respirations 22, O2 saturations 100% on room air, blood pressure 125/70. CONSTITUTIONAL: The patient is awake and alert. She is oriented x3. She is afebrile and does not appear to be in any visible distress. HEENT: Head is normocephalic and atraumatic. Pupils are equal, round, and reactive to light. Extraocular movements are intact. Hearing is intact. Moist mucous membranes. RESPIRATIONS: Normal work of breathing on room air. MOTOR: The patient is moving all 4 extremities well. She has good strength in deltoids, biceps, triceps, it service continuity supervisor strength, hip flexion, knee flexion, dorsiflexion, plantar flexion, and EHL bilaterally. There is no sensory loss noted. NEUROLOGIC: The patient is awake, alert, and oriented x3. GCS 15. Cranial nerves 2 through 12 are tested and intact. There are no sensory or motor deficits noted. Speech is spontaneous and fluent. Normal attention, normal fund of knowledge, slight difficulty with . IMAGING: MRI of the brain shows 2 metastatic brain lesions, 1 in each parietal lobe, there is associated vasogenic edema. There is no midline shift. There is no obstructive hydrocephalus. There are moderate chronic ischemic white matter changes and microvascular atherosclerosis. ASSESSMENT AND PLAN: The patient has 2 small lesions in both parietal lobes, possibly metastatic disease from history of adenocarcinoma. We recommend that she follows up with her oncologist the one who has treated her in the past. If this is not an option, we would need further information from the treating physician. If there are any further questions, please contact Neurosurgery. Job ID: [id number]
[2019-01-16] MEDS: busPIRone HCl 10 MG TAB PO PRN (09:45)
[2019-01-16] MEDS: Loratadine 10 MG TAB PO SCH (09:45)
[2019-01-16] MEDS: Enoxaparin Sodium 40 MG/0.4 ML SYRINGE SC SCH (09:45)
[2019-01-16] MEDS: levETIRAcetam 500 MG TAB PO SCH (09:46)
[2019-01-16] MEDS: Magnesium Oxide 400 MG TAB PO SCH (09:46)
[2019-01-16] MEDS: AMOXicillin 250 MG CAP PO SCH (09:46)
[2019-01-16 14:20] VITALS: BP 132/86; TEMP 98.1
--- NOTE | 2019-01-16 16:01 | CON ---
DATE OF CONSULTATION: 01/16/2019 REASON FOR CONSULTATION: Ms. Wiggins is a 63-year-old female who has been diagnosed with brain metastasis from her lung cancer. I was asked to see her to discuss her options for treatment. HISTORY OF PRESENT ILLNESS: Ms. Wiggins was initially diagnosed with an adenocarcinoma in the right upper lobe of the lung. This was in 2014. She was seen by Dr. Engel and underwent staging with PET scan. Apparently, she had a mass in both the right upper lobe of the lung and in the left upper lobe of the lung. There was also some concern for possible lymphangitic spread. She was treated with chemotherapy, and essentially was felt to have stable disease over a period of about two years. Subsequently, Dr. Engel closed her practice and she eventually saw Dr. Verdugo in Cardiothoracic Surgery in [place]. This was sometime about mid 2016. I do not have records from that visit, but ultimately, she underwent mediastinal lymph node sampling, which was negative. She apparently had resection bilaterally of her lung cancer. Since that time, she has been doing well and has not had any followup with Oncology. On Sunday, she began experiencing headaches and eventually had an episode, where she "passed out." She is having trouble with her vision and with confusion, but denies any problems with seizures or nausea or vomiting. She was taken by her to the emergency room in [place], where a CT scan of the head suggested possible brain metastasis with vasogenic edema. She was started on dexamethasone and admitted here at [facility] in [place] for workup and evaluation. Yesterday, she underwent an MRI of the brain, which showed a 1.6 cm enhancing mass in the right posterior parietal area with vasogenic edema as well as a 1 cm enhancing mass in the left parietal area with vasogenic edema. There was a faint patchy focus of enhancement in the lateral aspect of the right anterior temporal lobe of unknown significance. No other lesion was identified. She was seen by Dr. Joy, and I have been asked to see the patient by Dr. Joy to discuss treatment options. He did favor radiosurgery. Since being on dexamethasone, she is much improved. She is having no headaches or seizure difficulty. Her vision is normal and she is having no confusion. She denies any other areas of pain, although admits that her appetite has been decreased recently and had an 8-pound weight loss. She has no shortness of breath or orthopnea. She voices no other complaints. PAST MEDICAL HISTORY: 1. Lung cancer as mentioned above. 2. Chronic renal insufficiency, apparently secondary to a CT scan contrast in the past. She does see a director of consumer marketing here in town. 3. Hypertension. 4. Anxiety disorder. 5. GE reflux disease. 6. Status post bilateral tubal ligation. 7. Status post foot and arm surgery. MEDICATIONS: 1. Dexamethasone. 2. Protonix. 3. BuSpar. 4. Cardizem. 5. Keppra. 6. Nicotine patch. ALLERGIES: NO KNOWN MEDICAL ALLERGIES. SOCIAL HISTORY: She admits that she still smokes up to 1/2 pack per day. She has tried to quit and is starting the patches. She wanted to try Chantix, but Medicaid would not pay for this. She denies any recent drug use, although admits to drug use in the past. She drinks 2 to 3 beers per day. She lives in [place], [place] with her . She is disabled. FAMILY HISTORY: Her mother at age 74 from liver cancer. Her father at age 83 from lung cancer. A sister at age 57 from lung cancer. There is no other family history of malignancy. REVIEW OF SYSTEM: A 12-system review of systems is otherwise negative. PHYSICAL EXAMINATION: VITAL SIGNS: Her height is 5 feet 7 inches, weight 130 pounds, blood pressure 118/75, pulse is 68, respirations are 16, temperature 98.3, O2 saturation 97% on room air. GENERAL: She is alert and oriented, and in no apparent distress. She is well-developed and well-nourished. Karnofsky performance status is 90%. HEENT: Eyes; pupils equal, round, and react to light. Extraocular movements are intact. ENT; oral cavity and oropharynx without lesion or erythema. Palate elevates symmetrically. Gingiva is intact. NECK: Supple without preauricular, submandibular, cervical, supraclavicular adenopathy. No thyromegaly. Larynx midline. LUNGS: Breathing nonlabored. Clear to auscultation and percussion. CARDIOVASCULAR: Heart is regular rhythm without murmur. No lower extremity edema. BACK: No tenderness on fist percussion of her spine. LYMPHATIC: No axillary, inguinal adenopathy. ABDOMEN: Soft, nontender, nondistended without mass or hepatosplenomegaly. Liver percusses to normal size. SKIN: Without rash or purpura. NEUROLOGIC: Cranial nerves 2 through 12 grossly intact. Motor strength is 5/5 in both upper and lower extremities in all muscle groups tested. Reflexes are normal and symmetrical. Gait was not tested. LABORATORY DATA: Pathology from biopsy in 2015 showed a moderately differentiated adenocarcinoma consistent with lung primary. EGFR and ALK mutation were negative. The CBC showed white blood cell count of 11,800 with a hemoglobin of 14.1, hematocrit of 40.8, and platelet count of 349,000. Chemistry group showed fairly normal electrolytes. Creatinine was 1.31. Her glucose was 149. Urine drug screen on admission was positive for THC, cocaine metabolite, and opiate metabolites. RADIOLOGIC STUDIES: Chest x-ray showed some volume loss in the right lung. There is no evidence of lung lesion. MRI of the brain showed two contrast-enhancing lesions. One measured 1.6 cm in the right parietal lobe. The other measured 1 cm in the left parietal lobe. There is surrounding vasogenic edema. There is a faint patchy area of enhancement in the left anterior right temporal lobe that I think is likely artifact. I see no other lesion. All these films were personally reviewed. ASSESSMENT: Ms. Wiggins is a 63-year-old female who is likely diagnosed with brain metastasis from her previously known lung cancer that was surgically resected two years ago. She has two small contrast-enhancing lesions. Her drug screen was positive that admission despite the fact that she denies any recent drug use. PLAN: I had a long discussion with Ms. Wiggins regarding her diagnosis, prognosis, prognostic factors, treatment options. I have also discussed the case with Dr. Joy and with the [facility]. I think the diagnosis is fairly certain that she has brain metastasis from her lung cancer. As such, I do not think we need to do a neurosurgical procedure for diagnostic purposes. I do not think that she has cerebral abscesses. I did discuss with Dr. Joy and he does not think she has cerebral abscess either. Thus, I think it is very high likelihood that she has brain metastasis from her lung cancer. I think, a good treatment option for her would be to do radiosurgery to the two areas of brain metastasis. The logistics of this procedure/radiation, as well as the benefits and risks were discussed with her. The simulation and treatment procedure were discussed with her. Side effects would include, but not be limited to skin reaction, fatigue, lower blood counts, hair loss, headache, nausea, vomiting, and small risk of damage to her normal brain, which could affect her vision or mentation or cause paralysis. Time was taken to answer all of her questions regarding her treatment options. Dr. Joy is also in favor of doing radiosurgery. She is agreeable to proceed with this procedure. We will make arrangements for that as an outpatient. From my perspective, she can be discharged and be sent home on dexamethasone and Protonix and Keppra. We can taper the dexamethasone as an outpatient. We will make arrangements for her to undergo simulation shortly for the radiosurgery procedure. In regard to her malignancy, we will refer her to Medical Oncology as an outpatient. She will need repeat systemic staging as she has not had any staging of her lung cancer for several years. I think that can be done as an outpatient also. I do not think the results of her systemic staging will change the recommendation or treatment procedure for the radiosurgery. Therefore, that can proceed as an outpatient. Thank you for asking me see this pleasant lady. Job ID: [id number]
--- NOTE | 2019-01-17 03:48 | DIS ---
DATE OF ADMISSION: 01/14/2019 DATE OF DISCHARGE: 01/16/2019 ADMITTING ATTENDING: John Mckeon MD. DISCHARGE ATTENDING: Petros Pandey MD. RESIDENT: Aparna Currie MD. CONSULT: 1. Dr. Desai with Oncology. 2. Dr. Sanchez with Radiation Oncology. 3. Dr. Joy with Neurosurgery. PROCEDURES: None. IMAGIN. Brain CT showed suspected brain metastases with vasogenic edema. 2. Brain MRI showed at least two metastatic brain lesions, one in each parietal lobe and moderate chronic ischemic white matter changes. PRIMARY DIAGNOSES: 1. Acute encephalopathy. 2. New brain metastases with vasogenic edema. 3. Lung adenocarcinoma. 4. Hyponatremia. SECONDARY DIAGNOSES: 1. Hypertension. 2. Gastroesophageal reflux disease. 3. Anxiety. 4. Chronic kidney disease 3. 5. Polysubstance abuse. 6. Recurrent dental abscesses. DISCHARGE MEDICATIONS: 1. Dexamethasone 4 mg p.o. t.i.d. 2. Keppra 500 mg p.o. b.i.d. 3. Buspirone 10 mg p.o. t.i.d. p.r.n. anxiety. 4. Zantac 10 mg p.o. daily. 5. Diltiazem 240 mg p.o. at bedtime. 6. Nexium 40 mg p.o. q.a.m. 7. Magnesium oxide 400 mg p.o. daily. DISCONTINUED MEDICATIONS: None. HISTORY OF PRESENT ILLNESS/HOSPITAL COURSE: This is a 63-year-old female with past medical history of adenocarcinoma of the lung status post radiation and resection, who presented due to altered mental status and was found to have new brain metastases with vasogenic edema. She was started on IV dexamethasone and symptomatically improved. Neurosurgery started her on Keppra for seizure prophylaxis and discussed the case with Dr. Sanchez and they determined that radiation would be the best course of action. Dr. Desai discussed this case with us as well and offered to see the patient outpatient for a full staging workup. DISPOSITION: Currently stable with a guarded prognosis. DISCHARGE INSTRUCTIONS: 1. Location: Home. 2. Diet: Heart healthy. 3. Activity: As tolerated. 4. Follow up with Dr. Sanchez in 1 day, Dr. Desai in 7 days, Dr. Joy and Dr. Byers. Job ID: [id number]
== END 2019-01-16 12:33 | disposition home or self-care (01) | DRG 54 ==
LOC: ERS 07:01 → ERHOLD 09:22 → T4-B 12:22
PROVIDERS: ADMIT Family Medicine; ATTEND Family Medicine
DX: C79.31 Secondary malignant neoplasm of brain (principal); G93.6 Cerebral edema; G93.40 Encephalopathy, unspecified; E22.2 Syndrome of inappropriate secretion of antidiuretic hormone; C34.90 Malignant neoplasm of unspecified part of unspecified bronchus or lung; K21.9 Gastro-esophageal reflux disease without esophagitis; F41.9 Anxiety disorder, unspecified; N18.3 Chronic kidney disease, stage 3 (moderate); I12.9 Hypertensive chronic kidney disease with stage 1 through stage 4 chronic kidney disease, or unspecified chronic kidney disease; F10.10 Alcohol abuse, uncomplicated; F17.210 Nicotine dependence, cigarettes, uncomplicated; F19.10 Other psychoactive substance abuse, uncomplicated; K04.7 Periapical abscess without sinus; Z71.51 Drug abuse counseling and surveillance of drug abuser; Z92.21 Personal history of antineoplastic chemotherapy; Z98.51 Tubal ligation status
CPT/HCPCS: 36415; 70553; 80048; 83935; 84300; 85025; 99285; A9577; J1100; J1650

== ENCOUNTER 2019-01-31 08:35 | Outpatient (CLI) | payer OTHER ==
--- NOTE | 2019-01-31 14:59 | PET ---
PET CT SKULL TO MID THIGH: COMPARISON: PET CT from 04/04/2016 HISTORY: Right upper lobe neoplasm. Malignant neoplasm of the upper lobe right bronchus. TECHNIQUE: A PET CT was performed from the skull to the mid thigh after the administration of 13 millicuries of F18 FDG. Evaluation was performed on a [employer] workstation. FINDINGS: NECK: No areas of hypermetabolic activity. CHEST: There is mild metabolic activity within a nodular density of the medial right lung apex, whic h is not hypermetabolic, SUV approximately 1.4, and the nodular soft tissue density measuring approximately 8 mm in diameter. ABDOMEN/PELVIS: No areas of hypermetabolic activity. SKELETON: No areas of hypermetabolic activity. CT images used for attenuation correction show scattered nonspecific ground glass opacities with inte rspersed blebs throughout each lung. There are granulomatous calcifications. Diffuse atherosclerotic disease is seen. IMPRESSION: Spiculated medial right apical nodule, measuring approximately 8 mm , is too small for reliable PET r esolution. Finding is not hypermetabolic. Recommend short-term CT thorax imaging as followup in 3 months. Transcribed Date/Time: 01/31/2019 3:24 PM
== END 2019-01-31 08:36 | disposition home or self-care (01) ==
LOC: PET 08:35
PROVIDERS: ATTEND Internal Medicine Hematology & Oncology
DX: C34.90 Malignant neoplasm of unspecified part of unspecified bronchus or lung (principal); R91.1 Solitary pulmonary nodule
CPT/HCPCS: 78815; A9552

== ENCOUNTER 2019-03-02 02:20 | Emergency (ER) | payer OTHER ==
[2019-03-02 03:01] LABS: #Basophils 0.1 thou/uL (0.0-0.2); #Monocytes 0.4 thou/uL (0.11-0.59); #Neutrophils 6.1 thou/uL (1.40-6.50); %Basophils 0.7 % (0.0-1.0); %Eosinophils 0.5 % (0.0-10.0); %Lymphocytes 23.2 % (21.0-51.0); %Monocytes 4.8 % (0.0-10.0); %Neutrophils 70.8 % (42.0-75.0); Hemoglobin 12.7 g/dL (12.0-16.0); Mean Corpuscular HGB CONC 34.6 g/dL (32.0-36.0); Mean Corpuscular Hemoglobin 31.3 pg (27.0-31.0); Mean Corpuscular Volume 90.4 fL (78.0-98.0); Mean Platelet Volume 6.7 fL (7.4-10.4); Platelet Count 272 thou/uL (130-400); Red Blood Cell (RBC) Count 4.05 mill/uL (4.20-5.40); White Blood Cell (WBC) Count 8.7 thou/uL (4.8-10.8)
[2019-03-02 03:23] LABS: ALT (SGPT) 9 U/L (8-55); AST (SGOT) 14 U/L (5-34); Albumin 3.9 g/dL (3.4-4.8); Alkaline Phosphatase 73 U/L (40-150); Anion Gap 16 mmol/L (10-20); BUN (Urea Nitrogen) 9 mg/dL (9.8-20.1); Bilirubin, Total 0.2 mg/dL (0.2-1.2); CK (CPK) 94 U/L (29-168); Calc. Creatinine Clearance 0 mL/min (70-130); Calcium 9.2 mg/dL (7.8-10.44); Carbon Dioxide 21 mmol/L (23-31); Chloride 94 mmol/L (98-107); Estimated GFR-MDRD 53; Globulin 2.5 g/dL (2.4-3.5); Glucose 87 mg/dL (80-115); Potassium 3.1 mmol/L (3.5-5.1); Protein, Total 6.4 g/dL (6.0-8.3); Sodium 128 mmol/L (136-145)
[2019-03-02 03:24] LABS: Acetaminophen Less than 6.0 mcg/mL (10.0-30.0); Alcohol Less than 10 mg/dL (Less than 10); Salicylate Less than 8.0 mg/dL (15.0-30.0)
[2019-03-02 03:52] LABS: Cocaine Metabolite Screen Detected (NotDetected); Medtox Reader # READER 4; Phencyclidine (PCP) Not Detected (NotDetected); THC/Cannabinoid Screen Detected (NotDetected)
[2019-03-02 03:53] LABS: Amphetamine Not Detected (NotDetected); Barbiturates Screen Not Detected (NotDetected); Benzodiazepine Screen Not Detected (NotDetected); Medtox Control Line Valid? VALID (VALID); Methadone Not Detected (NotDetected); Methamphetamine Not Detected (NotDetected); Opiate Screen Not Detected (NotDetected); Oxycodone Screen Not Detected (NotDetected); Tricyclic Screen Not Detected (NotDetected)
[2019-03-02] MEDS ORDERED: levETIRAcetam 500 MG TAB PO SCH (05:15)
--- NOTE | 2019-03-02 07:56 | CT ---
Final report by Dr. Erazo Emergency after-hours study CT BRAIN NONCONTRAST: DATE: 03/02/2019 HISTORY: 63-year-old female with lung cancer metastatic to the brain presents with altered mental status. FINDINGS: There is no evidence of acute intra-axial or extra-axial hemorrhage. There is no midline shift or any other mass effect. There is no extra-axial fluid collection. There is no evidence of obstructive hydrocephalus. Calvarium is intact. There is diffuse brain parenchymal volume loss. There are low att enuation areas in the white matter. These are nonspecific, but in a patient of this age, they are probably chronic ischemic white matter changes due to microvascular atherosclerosis. Small focus of v asogenic edema in the upper portion of the right parietal lobe represents the area of brain metastatic lesion demonstrated on recent MRI. The other region of small edema in the contralateral le ft parietal lobe of the other metastatic lesion, has become inconspicuous now, representing a change compared to the CT of 01/14/2019. Agree with preliminary report by [facility]. IMPRESSION: 1) No acute intracranial findings. 2) involutional changes and chronic ischemic white matter changes. 3) small focus of vasogenic edema around a small intra-axial brain metastasis in the right upper chen etal lobe.
--- NOTE | 2019-03-02 08:30 | RAD ---
RADIOGRAPH CHEST 1 VIEW: DATE: 03/02/2019 HISTORY: 63-year-old female with dyspnea. COMPARISON: 01/07/2019 FINDINGS: There are no airspace densities, pulmonary edema, pneumothorax, or cardiomegaly. Chronically elevated right hemidiaphragm. Chronic diffuse prominent interstitial markings. Suture lines at the bilateral upper lung martins. No interval change overall. IMPRESSION: 1. No acute cardiopulmonary findings. 2. Postsurgical changes in bilateral upper lung zones. 3. Chronically elevated right hemidiaphragm. 4. Prominent interstitial markings, probably chronic.
--- NOTE | 2019-03-08 11:57 | EKG ---
Test Reason : AMS Blood Pressure : / mmHG Vent. Rate : 096 BPM Atrial Rate : 096 BPM P-R Int : 204 ms QRS Dur : 062 ms QT Int : 352 ms P-R-T Axes : 049 065 056 degrees QTc Int : 444 ms Normal sinus rhythm Septal infarct , age undetermined Abnormal ECG Confirmed by LYNNE SMITH D.O. ([id number]), editorial project manager ESME CHANDLER ([id number]) on 03/08/2019 11:57:29 AM Referred By: MACIEL SMITH Confirmed By:LYNNE SMITH D.O.
== END 2019-03-02 05:40 | disposition home or self-care (01) ==
LOC: ERS 02:20
DX: R41.82 Altered mental status, unspecified (principal); I10 Essential (primary) hypertension; F41.9 Anxiety disorder, unspecified; F17.210 Nicotine dependence, cigarettes, uncomplicated; Z79.899 Other long term (current) drug therapy
CPT/HCPCS: 36415; 70450; 71045; 80053; 80306; 80307; 82550; 84146; 84484; 85025; 93005; 96360

== ENCOUNTER 2019-05-01 11:44 | Outpatient (CLI) | payer OTHER ==
--- NOTE | 2019-05-01 13:12 | MRI ---
EXAM: MRI of the brain without and with contrast HISTORY: Lung cancer with metastatic disease to the brain status post radiation therapy COMPARISON: 01/14/2019 TECHNIQUE: Multiplanar multisequence MR images were obtained of the brain without and with IV contras t. FINDINGS: The previously seen focus of enhancement in the right parietal lobe has decreased in size and measure s 10 mm in greatest dimension. An area of susceptibility artifact in this location may resent a small amount of hemosiderin deposition. The lesion in the left parietal lobe has also decreased in si ze and now measures 5 mm in greatest dimension. This also has susceptibility artifact on the gradient sequence. There are scattered foci of high T2/FLAIR signal in the subcortical and periventricular white matter, likely secondary to small vessel ischemic disease. No restricted diffusion. No other abnormal enhancement. No hydronephrosis. No extra-axial fluid collection. The expected flow voids are present. Corpus callosum, pituitary, and craniocervical junction are within normal limits. The calvarium and overlying soft tissues are unremarkable. The paranasal sinuses and mastoid air cells are well aerated. IMPRESSION: Decreased size of bilateral parietal enhancing masses.
== END 2019-05-01 11:45 | disposition home or self-care (01) ==
LOC: SCSMRI 11:44
PROVIDERS: ATTEND Radiology Radiation Oncology
DX: C34.90 Malignant neoplasm of unspecified part of unspecified bronchus or lung (principal); C79.31 Secondary malignant neoplasm of brain
CPT/HCPCS: 70553; 82565

== ENCOUNTER 2019-05-06 13:54 | Outpatient (CLI) | payer OTHER ==
--- NOTE | 2019-05-06 15:35 | PET ---
Exam: PET scan with CT attenuation correction HISTORY: Right upper lung nodule COMPARISON: 01/31/2019 TECHNIQUE: PET scan with CT attenuation correction was performed from the base of the brain to the pr oximal thighs following the intravenous administration of 10.5 mCi of [id number]. FINDINGS: Head and neck: No abnormal FDG localization. Chest: CT used for attenuation correction demonstrates a spiculated lesion in the right upper lung me asuring 1.1 x 1.2 cm. This lesion has increased in size. On the previous CT used for attenuation correction, this lesion measured 0.8 cm in maximum dimension. There is been increased FDG avidity sin ce the previous examination with a maximum SUV of 8.1 No other areas of abnormal FDG localization in the lung parenchyma. Chronic lung parenchymal changes due to scar, atelectasis are noted. Patchy groundglass opacities in the left lung may be due to edema. Stable emphysema. Findings compatible with a right upper lobectomy. Abdomen pelvis: No abnormal FDG localization Osseous structures: No abnormal FDG localization Impression: FDG avidity involving and enlarging spiculated mass in the right upper lung. Given location, CT-guide d biopsy may be very technically difficult. Transcribed Date/Time: 05/06/2019 3:49 PM
== END 2019-05-06 13:55 | disposition home or self-care (01) ==
LOC: PET 13:54
PROVIDERS: ATTEND Internal Medicine Hematology & Oncology
DX: C34.91 Malignant neoplasm of unspecified part of right bronchus or lung (principal); R91.8 Other nonspecific abnormal finding of lung field
CPT/HCPCS: 78815; A9552

== ENCOUNTER 2019-08-08 14:32 | Outpatient (CLI) | payer OTHER ==
--- NOTE | 2019-08-09 10:08 | MRI ---
BRAIN MRI WITH AND WITHOUT CONTRAST: DATE: 08/08/2019. COMPARISON: 05/01/2019. HISTORY: Lung cancer with intracranial metastatic disease. TECHNIQUE: Multiplanar, multisequence MR imaging of the brain obtained with and without contrast. FINDINGS: The diffusion weighted imaging demonstrates no evidence for acute infarction. The arterial flow voids appear grossly unremarkable at the level of the skull base on the T2 weighted imaging. The imaged paranasal sinuses and mastoid air cells are unremarkable. Regional bone marrow signal intensity appears grossly unremarkable. Incompletely imaged metallic isabela fact overlies the upper cervical spine posteriorly. Two stable areas of blooming artifact are noted, one within the posterolateral aspect of the left fro ntal lobe measuring 4 mm and one within the superior right parietal region measuring 8 mm, stable. FLAIR imaging demonstrates extensive multifocal periventricular, deep, and subcortical white matter h yperintensity as well as patchy similar hyperintensity within the trish, evidence of small-vessel dise ase. On the postcontrast imaging, there is no abnormal enhancement involving the posterior fossa or the br ainstem. In the 2 areas of the above-described blooming artifact, there is subtle rim enhancement suggesting h emorrhagic metastatic disease. The lesion within the posterior right parietal region on the postcont rast imaging measures 1.1 cm in AP dimension, similar when compared to the 05/21/2019 examination and the lesion within the lateral posterior left frontal region measures approximately 4-5 mm on postcont rast imaging, also unchanged. No additional/new areas of intraaxial enhancement. IMPRESSION: Two stable rim enhancing intraaxial lesions with blooming artifact on gradient echo sequence suggesti ng stable hemorrhagic intracranial metastatic lesions. POS: OFF
== END 2019-08-08 14:33 | disposition home or self-care (01) ==
LOC: SCSMRI 14:32
PROVIDERS: ATTEND Radiology Radiation Oncology
DX: C79.31 Secondary malignant neoplasm of brain (principal); C34.90 Malignant neoplasm of unspecified part of unspecified bronchus or lung
CPT/HCPCS: 70553; 82565

== ENCOUNTER 2019-11-25 07:58 | Outpatient (CLI) | payer OTHER ==
--- NOTE | 2019-11-25 13:07 | CT ---
EXAM: CT Chest W Con PROVIDED CLINICAL HISTORY: Lung cancer COMPARISON: PET/CT 05/06/2019, CT chest 04/06/2016 FINDINGS: The heart, pericardium and great vessels demonstrate an unremarkable CT appearance with the exception of vascular calcification. Postoperative changes of right upper lobectomy are demonstrated. Multiple bilateral sub-6 mm noncalcified pulmonary nodules are present. Though the CT data from the P ET CT examination 05/06/2019 is not of diagnostic quality, these nodules are probably new. The spiculated right paramediastinal hypermetabolic nodule described on PET/CT of 05/06/2019 is unchan ged in size. Scarring changes involving both lung apices redemonstrated. Emphysematous changes are again seen. There is no pleural fluid, pleural thickening or pneumothorax apparent. The remaining airway appears patent and of normal caliber. There is no evidence for thoracic lymph node enlargement. The visualized portions of the upper abdomen demonstrate no acute abnormality. The osseous structures demonstrate no concerning lytic or blastic lesions. IMPRESSION: 1. Stable right paramediastinal apical spiculated nodule. 2. Multiple bilateral noncalcified pulmonary nodules, probably new with respect to the PET/CT 05/06/20 19. Metastatic disease is not excluded.
== END 2019-11-25 07:59 | disposition home or self-care (01) ==
LOC: SCSCT 07:58
PROVIDERS: ATTEND Radiology Radiation Oncology
DX: C79.31 Secondary malignant neoplasm of brain (principal); C34.11 Malignant neoplasm of upper lobe, right bronchus or lung; R91.8 Other nonspecific abnormal finding of lung field; M89.9 Disorder of bone, unspecified; Z92.3 Personal history of irradiation; Z92.21 Personal history of antineoplastic chemotherapy; Z98.890 Other specified postprocedural states
CPT/HCPCS: 71260; 82565

== ENCOUNTER 2019-12-17 10:47 | Outpatient (CLI) | payer OTHER ==
--- NOTE | 2019-12-17 12:34 | MRI ---
Exam: Brain MRI with and without contrast HISTORY: Status post chemotherapy and radiation therapy. Metastatic lung cancer. COMPARISON: 08/08/2019 FINDINGS: Gradient echo sequence: Stable thickening involving the lesion along the left temporal lobe as well a s the right parietal lobe, near the vertex Calvarium: Appropriate T1 marrow signal intensity Midline brain parenchyma: Unremarkable Cerebrum:Redemonstration of T2 and FLAIR hyperintensity, compatible with vasogenic edema involving th e right parietal and occipital lobe. The degree of vasogenic edema has minimally progressed. Additional T2 and FLAIR white matter hyperintensities are felt to represent chronic small vessel isch emic change and are essentially stable. There is no midline shift. Basilar cisterns are patent. Cortical valdivia-white matter differentiation is preserved. Ventricles: No evidence of hydrocephalus. Sinuses and mastoid air cells: Adequate aeration Diffusion: Central arterial flow is maintained. Absent restricted diffusion. Postcontrast images:Redemonstration of enhancing mass in the right parietal lobe measuring 1.7 x 1.1 cm a left temporal lobe measuring 0.7 x 0.4 cm. Both lesions continue to have peripheral enhancement. There is been interval increase in size. Previously, the right parietal lesion measured 0.8 x 1.0 cm. Left temporal lesion is measured 0.5 x 0.3 cm. IMPRESSION: Redemonstration of 2 separate hemorrhagic metastatic foci in the cerebrum. There is been interval inc rease in size in both lesions. Slightly worsening vasogenic edema involving the metastatic lesion in the right parietal lobe.
== END 2019-12-17 10:48 | disposition home or self-care (01) ==
LOC: SCSMRI 10:47
PROVIDERS: ATTEND Radiology Radiation Oncology
DX: C34.90 Malignant neoplasm of unspecified part of unspecified bronchus or lung (principal); C79.31 Secondary malignant neoplasm of brain; R90.89 Other abnormal findings on diagnostic imaging of central nervous system; G93.6 Cerebral edema; G93.9 Disorder of brain, unspecified
CPT/HCPCS: 70553; 82565

== ENCOUNTER 2020-01-29 13:43 | Outpatient (CLI) | payer OTHER ==
[~2020-01-29 13:43] MED LIST: Magnevist 469MG/ML 20 ML VIAL ONE
--- NOTE | 2020-01-29 15:49 | MRI ---
MRI OF BRAIN WITH AND WITHOUT CONTRAST: INDICATION: Brain tumor. History of lung cancer. Prior MRI demonstrated 2 metastatic lesions. COMPARISON: Comparison is made to recent MRI of brain 12/17/2019. FINDINGS: Ventricles remain normal size and position. Moderately severe chronic ischemic white matter changes are again noted on FLAIR sequence. The rim-enhancing mass in the right parietal lobe is again seen. This an irregularly shaped mass. M easurements today do not appear significantly changed from the 12/17/2019 exam. Maximal dimension in the coronal plane measured at 1.5 cm today which is unchanged from a recent exam. The surrounding va sogenic edema at this site does not appear significantly changed. Susceptibility artifact on gradien t echo is again seen at this site suggesting blood product. The small enhancing nodule in the left parietal lobe region just above the sylvian fissure is again s een. This small enhancing nodule has slightly increased measuring approximately 7 mm greatest dimens ion in the axial plane today. It previously measured in the 5-6 mm range. Mild increased FLAIR sign al at this site is seen today which suggests mild increase in the surrounding edema at this lesion. No other enhancing lesion. No other interval change. IMPRESSION: 1. There are 2 enhancing metastatic lesions again noted. The right parietal lobe lesion does not ap pear significantly changed in size. The surrounding vasogenic edema at this lesion appears stable. 2. The tiny left peripheral parietal lobe cortex lesion is slightly more prominent today and there m ay be some increased edema at this site today. POS: AGW
== END 2020-01-29 13:44 | disposition home or self-care (01) ==
LOC: TBSIIMAG 13:43
PROVIDERS: ATTEND Neurological Surgery
DX: C79.31 Secondary malignant neoplasm of brain (principal); R60.0 Localized edema; C80.1 Malignant (primary) neoplasm, unspecified
CPT/HCPCS: 70553; 82565

== ENCOUNTER 2020-05-26 09:38 | Outpatient (CLI) | payer OTHER ==
--- NOTE | 2020-05-26 12:10 | MRI ---
Exam: Brain MRI with and without contrast HISTORY: Intracranial metastases. COMPARISON: 01/29/2020, 12/17/2019 FINDINGS: Gradient echo sequence: Redemonstration of susceptibility associated with a hemorrhagic metastases id entified in the right parietal lobe. No evidence of acute parenchymal hemorrhage Calvarium: Appropriate T1 marrow signal intensity Midline brain parenchyma: Unremarkable Cerebrum:Redemonstration of vasogenic edema involving the right parietal lobe. There is an associated peripheral enhancing mass. Additional T2 and FLAIR white matter hyperintensities are felt to be due to chronic small vessel ischemic change. There is no midline shift. With the exception of the rig ht parietal lobe, cortical valdivia-white matter differentiation is preserved. Personally noted T2 and FLAIR hyperintensity involving the left cerebrum has decreased. Residual enhancing lesion is less farshad dent but is not increased in size. Ventricles: No evidence of hydrocephalus. Sinuses and mastoid air cells: Adequate aeration Diffusion: Central arterial flow is maintained. Absent restricted diffusion. Postcontrast images:Redemonstration of transversely enhancing mass centered in the right parietal lob e, currently measuring 1.0 x 1.5 cm. Previous, this enhancing focus measured 1.2 x 1.7 cm. There is been no appreciable change/increase in size. There are no new abnormal enhancing foci in the right la emory. Previous noted enhancing focus in the left temporal cortex is redemonstrated though slightly less evident. This focus measures 0.6 cm in maximum dimension, unchanged. Is a new enhancing focus in the medial left occipital lobe measuring 0.5 x 0.5 cm compatible with a new metastatic lesion. IMPRESSION: 1. Stable enhancing focus in the right cerebrum with stable vasogenic edema 2. Decreasing edema involving the left temporal lesion. Lesion is somewhat less evident. Maximum dime nsion is unchanged. 3. New intracranial metastatic lesion in the medial left occipital lobe. CODE T.
== END 2020-05-26 09:39 | disposition home or self-care (01) ==
LOC: SCSMRI 09:38
PROVIDERS: ATTEND Neurological Surgery
DX: D49.6 Neoplasm of unspecified behavior of brain (principal); G93.6 Cerebral edema
CPT/HCPCS: 70553; 82565

== ENCOUNTER 2020-06-03 11:23 | Outpatient (CLI) | payer OTHER ==
--- NOTE | 2020-06-03 13:03 | RAD ---
LEFT SHOULDER 3 VIEWS: Date: 06/03/2020 HISTORY: Left shoulder pain. History of metastatic lung cancer. COMPARISON: 02/09/2020. FINDINGS: No acute fracture, dislocation, or bony destruction is identified. Postop changes in the left lung and cervical spine are again noted. IMPRESSION: Stable exam. POS: AH
== END 2020-06-03 11:24 | disposition home or self-care (01) ==
LOC: BICRAD 11:23
PROVIDERS: ATTEND Radiology Radiation Oncology
DX: M25.512 Pain in left shoulder (principal); C79.31 Secondary malignant neoplasm of brain; Z85.118 Personal history of other malignant neoplasm of bronchus and lung

== ENCOUNTER 2020-06-11 10:13 | Outpatient (CLI) | payer OTHER ==
[~2020-06-11 10:13] MED LIST changes: +Iopamidol-370 76% 500 ML 1 ML ONE; -Magnevist 469MG/ML 20 ML VIAL ONE
--- NOTE | 2020-06-11 12:23 | CT ---
CT CHEST AND ABDOMEN WITH IV CONTRAST: Oral contrast was given. INDICATION: Lung cancer. COMPARISON: Comparison is made to CT chest 11/25/2019. FINDINGS: Mass in the medial right upper lobe is again seen and has enlarged when compared to the prior exam. This mass now measures 3.2 cm AP dimension x 2.3 cm width in the axial plane. There appears to be so me obstructive atelectasis involving the right upper lobe bronchus with some volume loss in the right upper lobe today. Numerous small pulmonary nodules are again seen bilaterally. These are most numerous in the right up per lung field and appear to have increased in number when compared to the prior study. There are chronic lung changes again seen which appear stable. The bony thorax appears intact and unremarkable with no lytic or blastic lesions seen. Nonspecific axillary lymph nodes appear stable. IMPRESSION: 1. Enlarging mass in the medial right upper lobe obstructing the right upper lobe bronchus with mild associated atelectasis with volume loss in the right upper lobe today. 2. Bilateral pulmonary nodules slightly more numerous on the right. CT ABDOMEN AND PELVIS: Liver, spleen, and pancreas unremarkable. Stomach unremarkable. Adrenal glands and kidneys unremarkable. Visualized bowel loops unremarkable. The aorta shows atherosclerotic change without aneurysm. No ad enopathy. IMPRESSION: No acute finding. No change from prior exam. POS: AGW
== END 2020-06-11 10:14 | disposition home or self-care (01) ==
LOC: BICCT 10:13
PROVIDERS: ATTEND Radiology Radiation Oncology
DX: C34.90 Malignant neoplasm of unspecified part of unspecified bronchus or lung (principal); C79.31 Secondary malignant neoplasm of brain; J98.11 Atelectasis; R91.8 Other nonspecific abnormal finding of lung field
CPT/HCPCS: 71260; 74160; Q9967

== ENCOUNTER 2020-07-14 11:16 | Outpatient (CLI) | payer OTHER ==
--- NOTE | 2020-07-14 15:06 | NM ---
Exam: Nuclear medicine whole body bone scan HISTORY: Lung cancer. Left shoulder pain. COMPARISON: 08/18/2015 Correlation: Left shoulder radiograph series 06/03/2020 FINDINGS: Physiologic distribution of the radiotracer. There is uptake in the left humeral neck and proximal left humeral diaphysis. Uptake in the distal left and right femur. IMPRESSION: 1. Increased uptake of the radiotracer in the left humeral neck, left diaphysis worrisome for osseous metastases. Patient will undergo left shoulder and left humerus radiograph series. 2. Uptake involving the distal left or right femoral diaphyses. Findings may represent a nonspecific periosteal reaction.
--- NOTE | 2020-07-14 15:34 | RAD ---
EXAM: LEFT HUMERUS TWO VIEWS: 07/14/20 HISTORY: Left arm pain. COMPARISON: Bone scan 07/14/20. On the bone scan there are two focal areas of increased activity, one in the upper mid humeral shaft. The other involving the humeral head/neck region. On the internal rotation view of the humerus, ther e is a 1.1 cm focal area of poorly defined decreased bone density within the shaft concerning for met astasis. Additionally, at the lateral humeral head/neck junction there is some subtle bone lucency wh ich could conceivably represent a lytic bone metastasis as well. IMPRESSION: Lytic bone lesion in the upper mid left humeral diaphysis as well as a probable second focus in the l ateral humeral head/neck junction. Certainly both of these are concerning for bone metastases and miguelito ear to correspond to the abnormal activity on the bone scan. POS: RRE
--- NOTE | 2020-07-14 15:42 | RAD ---
EXAM: LEFT SHOULDER THREE VIEWS: 07/14/20 HISTORY: Abnormal bone scan. Very subtle area of decreased bone density in the mid proximal humeral shaft at the location of the f ocal increased activity on the bone scan worrisome for a poorly circumscribed lytic bone lesion. Some heterogeneous decreased bone density within the humeral head/neck junction which could also represen t a small lytic metastasis. IMPRESSION: Diffuse bone demineralization. Two possible foci of decreased bone density representing lytic metasta sis, one at the humeral head/neck junction and the other one at the proximal mid humeral shaft. POS: RRE
== END 2020-07-14 11:17 | disposition home or self-care (01) ==
LOC: NM 11:16
PROVIDERS: ATTEND Radiology Radiation Oncology
DX: M25.512 Pain in left shoulder (principal); C34.11 Malignant neoplasm of upper lobe, right bronchus or lung; C79.31 Secondary malignant neoplasm of brain; M25.552 Pain in left hip; M81.0 Age-related osteoporosis without current pathological fracture; M89.9 Disorder of bone, unspecified; R94.8 Abnormal results of function studies of other organs and systems
CPT/HCPCS: 78306; A9503

== ENCOUNTER 2020-07-26 11:09 | Outpatient (CLI) | payer OTHER ==
[~2020-07-26 11:09] MED LIST changes: -Iopamidol-370 76% 500 ML 1 ML ONE; +Magnevist 469MG/ML 20 ML VIAL ONE
--- NOTE | 2020-07-26 15:38 | MRI ---
MRI BRAIN WITH AND WITHOUT CONTRAST: INDICATION: Brain tumor. Lung cancer with metastatic lesions. COMPARISON: Comparison is made to MRI of brain dated 05/26/2020. FINDINGS: Ventricles have normal size and position. FLAIR sequence again shows echogenic edema in the right parietal lobe. There is new vasogenic edema in the right frontal lobe associated with a new lesion. Moderate chronic ischemic white matter changes appear stable. No significant edema seen associated with the lesion in the left parietal and left occipital lobe. P ost contrast images again reveal a ring-enhancing irregular-shaped mass in the right parietal lobe po steriorly abutting the dural surface measuring up to 1.5 cm. This lesion does not appear significant ly changed in size or appearance. There is a new right frontal lobe lesion today which shows peripheral enhancement and measures approx imately 8 mm. A very subtle focus of enhancement was present at this location on the prior study. Focus of enhancement in the left parietal lobe is again seen (this was previously described as a left temporal lobe lesion. It measures approximately 6 mm in the axial plane and appears slightly more prominent today. The left occipital lobe lesion previously described in the parasagittal location is again seen. This lesion is also slightly more pronounced today measuring 6 mm on today's study. There was previous ly a very subtle small lesion measuring approximately 4 mm. IMPRESSION: 1. New lesion in the right frontal lobe. 2. The other lesions previously described are again noted. 3. The right parietal lobe lesion does not appear significantly changed. The left occipital lobe le ernst and the left parietal lobe lesion are slightly more prominent today. POS: OFF
== END 2020-07-26 11:10 | disposition home or self-care (01) ==
LOC: MRI 11:09
PROVIDERS: ATTEND Radiology Radiation Oncology
DX: D49.6 Neoplasm of unspecified behavior of brain (principal); G93.89 Other specified disorders of brain
CPT/HCPCS: 70553

== ENCOUNTER 2020-09-17 09:24 | Outpatient (CLI) | payer MEDICARE, MEDICAID ==
--- NOTE | 2020-09-17 11:18 | PET ---
Exam: PET scan with CT attenuation correction HISTORY: Malignant neoplasm of the upper lobe, right bronchus. Patient has brain metastases. Patient has osseous metastases. COMPARISON: 05/06/2019. CORRELATION: Chest, abdomen, and pelvic CT 09/06/2020. TECHNIQUE: PET scan with CT attenuation correction is performed from the base of the brain to the pro ximal thighs following the intravenous administration of 11.5 mCi of [id number]. FINDINGS: Head and neck: No abnormal FDG localization. Known intracranial metastases is difficult to appreciate on PET imaging. Refer to recent MRI for further detail. Chest: Hypermetabolic right subpectoral lymph node with a maximum SUV of 5.8. Hypermetabolic right ax illary lymph node with a maximum SUV of 4.7. Hypermetabolic right hilar mass with maximum SUV of 12.4. Previously, this mass was smaller in size on the CT used for attenuation correction. Previously , the maximum SUV was 4.8. There are hypermetabolic mediastinal lymph nodes. Prevascular hypermetabolic lymph node has a maximum SUV of 6.0. Subcarinal lymph node has a maximum SUV of 6.6. A dditional hypermetabolic lymph nodes in the AP window and left hilum are identified. CT used for attenuation correction demonstrates a nonhypermetabolic nodule which is calcified in the right lower lobe. Abdomen and pelvis: There is FDG avidity involving an anterior abdominal wall lymph node with a maxim um SUV of 2.6. There is an FDG-avid lesion in the liver with a maximum SUV of 4.3. FDG-avid gastrohepatic ligament lymph node with a maximum SUV of 3.4. Hypermetabolic activity involving the ri ght adrenal gland with a maximum SUV of 3.5. Hypermetabolic activity also involves the left adrenal gland with more focal nodularity. Maximum SUV is 4.3. Osseous structures: No abnormal FDG avidity. IMPRESSION: Extensive progression of disease with evidence of mediastinal lymphadenopathy, hepatic metastases as well as possible hypermetabolic lymph nodes in the abdominal mesentery as described above. Primary right upper lobe/paramediastinal mass is once again demonstrated. Transcribed Date/Time: 09/17/2020 11:26 AM
== END 2020-09-17 09:25 | disposition home or self-care (01) ==
LOC: PET 09:24
PROVIDERS: ATTEND Internal Medicine Hematology & Oncology
DX: C34.11 Malignant neoplasm of upper lobe, right bronchus or lung (principal); R59.0 Localized enlarged lymph nodes; C78.7 Secondary malignant neoplasm of liver and intrahepatic bile duct
CPT/HCPCS: 78815; A9552

== ENCOUNTER 2020-10-15 07:25 | Day surgery (SDC) | payer MEDICARE, MEDICAID ==
[2020-10-08 11:41] VITALS: BMI 18.3
--- NOTE | 2020-10-15 09:23 | RAD ---
2 VIEWS CHEST: Date: 10/15/2020 HISTORY: Preoperative radiograph. COMPARISON: CT chest dated 09/06/2020. FINDINGS: Two views of the chest show normal sized cardiomediastinal silhouette. There is elevation of the righ t hemidiaphragm. Mass-like opacity is seen along the right hilar region. There appears to be wedge-sh aped opacity in the right apex which likely represents atelectasis in the right upper lobe. No pleura l effusion is seen. IMPRESSION: Right hilar/upper lobe mass with atelectasis of the right upper lobe. POS: EAA
[2020-10-15] MEDS ORDERED: PROPOFOL 200 MG/20 ML VIAL ONE (09:25)
--- NOTE | 2020-10-15 10:08 | RAD ---
TWO VIEWS NECK SOFT TISSUES: COMPARISON: None. HISTORY: Airway analysis with subglottic stenosis. FINDINGS: Two views neck soft tissues shows no prevertebral soft tissue swelling. There is no swelling of the epiglottis. There is mild narrowing of the airway in the subglottic region. The patient is status p ost fusing of the posterior cervical spine. IMPRESSION: No significant soft tissue abnormality. POS: EAA
[2020-10-15] MEDS ORDERED: Iopamidol 370 76% 100 ML VIAL ONE (11:13)
--- NOTE | 2020-10-15 11:39 | CT ---
POST CONTRAST SOFT TISSUE NECK CT: COMPARISON: None. CORRELATION: Pet CT 09/17/2020. HISTORY: Evaluate for narrowing of the airway. Patient is scheduled to undergo Mediport catheter placement. FINDINGS: Visualized brain parenchyma is unremarkable. Adequate aeration otherwise paranasal sinuses and mastoid air cells. Aerodigestive track to the level of the nasopharynx, oral cavity and hypopharynx appears to be patent . No obvious masses in the oral cavity. Limited evaluation due to dental amalgam artifact. Midline fatty raphae of the tongue is preserved. Symmetric attenuation of the salivary glands. Symmetric attenuation of the paraspinal muscles. There is evidence of extensive cervical fusion changes. Grossly the great vessels of the neck are patent. No evidence of lymphadenopathy in the soft tissue neck structures. With regards to the supraglottic larynx, there is mild narrowing, likely due to apposition of the voc al cords. The airway at this level measures 2.0 cm anterior-posterior by 0.4 cm mediolateral. The level of the true vocal cords, there is mild medial deviation of the anterior aspect of both vocal co rds. No evidence of a mucosal-based lesion. Upper chest: Multiple enlarged necrotic lymph nodes are identified. 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 Additional enlarged lymph nodes are noted in the right axilla. There are chronic changes of the lung parenchyma. IMPRESSION: Narrowing of the airway at the level supraglottic larynx. Findings may be due to apposition of the vo demetrio cords. There does not appear to be obvious mucosal based mass. Apposition vocal cords likely due to mediastinal lymphadenopathy causing mass effect and compromise of the recurrent laryngeal nerv e. Results of study discussed with Dr. Cates 10/15/2020 at 11:39 AM. Code CR Transcribed Date/Time: 10/15/2020 11:56 AM
[2020-10-15] MEDS ORDERED: Ketamine 50 MG/ML (10ML VIAL) ONE (11:44)
[2020-10-15] MEDS ORDERED: Midazolam HCl 2 mg/2 ml Vial ONE (11:44)
--- NOTE | 2020-10-15 13:14 | OP ---
DATE OF PROCEDURE: 10/15/2020 PREOPERATIVE DIAGNOSES: Metastatic lung cancer, history of partial lung resection years ago, radiation therapy years ago, now with right mainstem bronchus high-grade obstruction, in need of antineoplastic chemotherapy access access. ANESTHESIA: TIVA, local, 0.5% Marcaine, 30 mL mixed with 1% Xylocaine with epinephrine 20 mL. DESCRIPTION OF PROCEDURE: The patient was taken to the operating room, where under supine position, neck and chest prepared with ChloraPrep and draped in routine fashion. Local anesthetic was infiltrated in the skin and subcutaneous tissue about the operative site. Infraclavicular approach made in the right subclavian vein. Trocar catheter inserted. J-wire threaded. Trocar catheter removed. Skin site enlarged sharply. Subcutaneous pocket created to accommodate the MediPort. Dilator and Peel-Away sheath placed over the J-wire in superior vena cava. Dilator and J-wire were removed. Catheter placed with Peel-Away sheath. Peel-Away sheath removed. Catheter tip placed in optimal position in the superior vena cava using fluoroscopy. Catheter tailored to length, connected to the MediPort, placed in subcutaneous pocket, secured with 2 interrupted sutures of 3-0 Prolene, subcutaneous tissue was approximated with 3-0 Monocryl, skin with subdermal 4-0 Monocryl, and Kerby glue applied. MediPort accessed with a Jacob needle, aspirated blood, flushed with heparinized saline solution 10 mL. Fluoroscopic images revealed good line placement. MediPort placement. Note, the patient at the beginning of the procedure, had some mild breathing difficulty appreciated by Anesthesia. The patient states this has been stable for her over the past months. Because of tracheal airway concerns, Anesthesia ordered soft tissue neck and there is some question of tracheal stenosis, subglottic, thus CT scan soft tissue neck ordered, which revealed airway to be widely patent. She did have right mainstem bronchus occlusion from tumor. The patient had her MediPort placed without incident. Discussion was held with the patient's daughter, Bárbara, per telephone who is driving in from [place] and it would be her wishes that the patient be a DNR, although Bárbara states she had discussed this with her mother and that the patient did not want to discuss it. I did discuss this with Ms. Wiggins. Ms. Wiggins did desire a DNR status. Job ID: [id number]
--- NOTE | 2020-10-15 14:25 | RAD ---
PORTABLE UPRIGHT CHEST 10/15/20 PROVIDED CLINICAL HISTORY: Post implanted port placement. FINDINGS: Comparison examination performed earlier same date. Interval placement of a right sided implanted por t, the tip of which terminates in the expected location of the SVC. Right hilar mass with lobar atele ctasis of the right upper lobe redemonstrated. Suture material is again seen overlying the left chest . Blunting of the left costophrenic angle persists. There is no evidence for pneumothorax. IMPRESSION: Post implanted port placement without evidence for complication. POS: BRITT
== END 2020-10-15 13:47 | disposition home or self-care (01) ==
LOC: SDC 07:25
PROVIDERS: ATTEND Specialist
PROC: 02HV33Z Insertion of Infusion Device into Superior Vena Cava, Percutaneous Approach (ICD-10-PCS; principal; 2020-10-15)
DX: C34.90 Malignant neoplasm of unspecified part of unspecified bronchus or lung (principal); C79.9 Secondary malignant neoplasm of unspecified site; K21.9 Gastro-esophageal reflux disease without esophagitis; J30.2 Other seasonal allergic rhinitis; Z79.899 Other long term (current) drug therapy; Z87.891 Personal history of nicotine dependence
CPT/HCPCS: 36561; 70360; 70491; 71045; 71046; C1788; J0690; J2250; J2704; Q9967

== ENCOUNTER 2020-10-22 17:14 | Inpatient (IN) | payer MEDICARE, MEDICAID ==
[2020-10-22 17:28] VITALS: BMI 18.5
[2020-10-22] MEDS ORDERED: Acetaminophen 325 MG TAB PO PRN (19:17)
[2020-10-22] MEDS ORDERED: Calcium Carbonate 500 MG ChewTAB PO PRN (19:17)
[2020-10-22] MEDS ORDERED: Acetaminophen 650 MG Suppository PR PRN (19:17)
[2020-10-22] MEDS ORDERED: Lorazepam 2 MG/ML VIAL SLOW IVP PRN (19:17)
[2020-10-22] MEDS ORDERED: HYDROcodone/Acetaminophen 5/325 mg Tablet PO PRN (19:30)
[2020-10-22] MEDS ORDERED: busPIRone HCl 10 MG TAB PO PRN (19:30)
[2020-10-22] MEDS ORDERED: tiZANidine HCl 4 MG TAB PO PRN (19:35)
--- NOTE | 2020-10-22 19:45 | PDOC.FPRHP ---
- History of Present Illness Chief Complaint: AMS History of Present Illness: Patient is a 65 year old female with known history of stage 4 lung cancer with metastases to the brain who presents with altered mental status that started 2-3 days ago and has become progressively worse. She was seen by her PCP Dr. Byers on 10/21 and diagnosed with acute OM, sent Rx for Levaquin. Earlier today family members stated the patient continued to become less responsive and so called EMS. EMS members were unsure if patient had a seizure or not and she was given unknown dose of Ativan in the field. Patient was given 2L NS in [place] ED. Her brain CT demonstrated progression of parietal lesions. Case was discussed with Dr. Sarmiento, oncologist contract administration coordinator who recommended patient for direct admission to [facility]. Patient's daughter was present in the room at time of my H&P. She is the primary MPOA and provided a majority of this history. Daughter states that patient and her family were supposed to have appointment on Sunday to discuss hospice care with patient's oncologist Dr. Farfan. Was also supposed to have MRI done at that time. ED Course: Given 2L Fluid in [facility] ED. The ED Provider Dr. Isaac discussed case with on- call oncologist Dr. Sarmiento who recommended transfer and admission to [facility] in [place]. - Allergies/Adverse Reactions Allergies Allergy/AdvReac Type Severity Reaction Status Date / Time No Known Drug Allergies Allergy Verified 10/08/20 11:34 - Home Medications Medication Instructions Recorded Confirmed Type Esomeprazole Magnesium [NexIUM] 40 mg PO QAM-WM 06/01/15 10/22/20 History busPIRone HCl [Buspar] 10 mg PO TID PRN 06/01/15 10/22/20 History Diltiazem HCl [Cartia XT] 240 mg PO HS 09/10/17 10/22/20 History levETIRAcetam [Keppra] 500 mg PO BID #60 tab 01/16/19 10/22/20 Rx HYDROcodone/Acetaminophen 1 - 2 each PO Q6H PRN 10/08/20 10/22/20 History [Hydrocodone-Acetamin 5-325 mg] Mirtazapine [Remeron] 15 mg PO HS 10/08/20 10/22/20 History Amoxicillin 500 mg PO TID 10/22/20 10/22/20 History Levofloxacin [Levaquin] 750 mg PO DAILY 10/22/20 10/22/20 History Pregabalin 100 mg PO BID 10/22/20 10/22/20 History tiZANidine HCl [Zanaflex] 4 mg PO TID PRN 10/22/20 10/22/20 History - History PMHx: 1. 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 HTN 3. GERD 4. Anxiety PSHx: L foot tendon repair, BTL, R forearm tendon repair, R elbow, L wrist tendon repair, Bilateral lung wedge resections FHx: Mom - liver disease, Dad - Throat cancer Social: Tobacco use 1/2 ppd for 49 years. Denies drug use, but has hx of past use of cocaine, marijuana. PCP: Dr. Byers - Review of Systems ROS unobtainable: due to mental status - Vital signs BP: 120/90 HR: 117 RR: 26 Tmax: 98.2F Pox: 95% on Nonrebreather Wt: 48 kg - Physical Exam Constitutional: NAD -Constitutional: cachectic, moaning to verbal stimulation, not oriented HEENT: normocephalic and atraumatic, no scleral icterus, MMM Neck: supple Chest: no lesions Heart: normal S1/S2, no murmurs/rubs/gallops, pulses present, no edema Lungs: CTAB, no respiratory distress, no rales/rhonchi, no wheezing Abdomen: soft, bowel sounds present Musculoskeletal: normal structure Neurological: no focal deficit Skin: no rash/lesions, capillary refill <2 seconds Heme/Lymphatic: no unusual bruising or bleeding FMR H&P: A/P - Problem List (1) Lung cancer Current Visit: Yes Status: Chronic Code(s): C34.90 - MALIGNANT NEOPLASM OF UNSP PART OF UNSP BRONCHUS OR LUNG Qualifiers: Laterality: unspecified laterality Lung location: unspecified part of lung Qualified Code(s): C34.90 - Malignant neoplasm of unspecified part of unspecified bronchus or lung (2) Metastatic cancer to brain Current Visit: Yes Status: Acute Code(s): C79.31 - SECONDARY MALIGNANT NEOPLASM OF BRAIN (3) Acute encephalopathy Current Visit: Yes Status: Acute Code(s): G93.40 - ENCEPHALOPATHY, UNSPECIFIED FMR H&P: Upper Level - Plan Acute Encephalopathy 2/2 likely progression of known Brain Metastases -patient with known brain mets and likely progression of parietal lesion on CT brain -administer trial of loading dose of 10mg dexamethasone -pending reassessment of patient's symptoms may consider continuing dexamethasone 4mg q6h as this has helped patient in past admission -NPO pending swallow eval by speech -Monitor for changes in neurologic status with q4h neuro checks -obtain MRI Brain WWO contrast tomorrow morning -continue home Keppra, low suspicion that patient had true seizure this morning Stage 4 Lung Cancer -with known Brain Metastases -Consult Oncology-Dr. Sarmiento called by ED, patient follows with Dr. Farfan, Oncology outpatient -Dexamethasone as above -MRI brain WWO contrast to further characterize lesions -has vocal cord compression 2/2 known lymphadenopathy, seen on recent imaging -Consult Palliative team for hospice discussion-patient previously DNAR but daughter who is MPOA wishes to keep patient FULL code until discussion can be made tomorrow regarding hospice care Acute Otitis Media -continue Levaquin for 10 day course as given by PCP Hypertension -Continue home meds GERD -Continue home meds Anxiety -Continue home meds CKDIII Stable, admission Cr 1.10 -Will monitor Code status: Full, pending discussion with Palliative team tomorrow VTE ppx: none Diet: NPO pending speech eval PCP: Dr. Byers Primary MPOA: Bárbara Abrams (daughter), Secondary MPOA: Gertrued Gruber (sister), Dispo: Stable, admit to inpatient on medical/oncology unit. Anticipate LOS >48 hours. Addendum - Attending - Attending Attestation Date/Time: 10/22/20 2706 I personally evaluated the patient and discussed the management with Dr. Han. I agree with the History, Examination, Assessment and Plan documented above with any addition or exceptions noted below.
--- NOTE | 2020-10-22 22:09 | PDOC.EVN ---
Event Note - Event Note Event Note: seen and evaluated. AMS with known stage 4 lung cancer and known brain mets. steroids to help with cerebral swelling. MRI was scheduled for sunday so will order here. oncology aware of patient admission. Patient likely approaching need for hospice but will discuss with family in the morning. see resident H&P for additional details.
[2020-10-22] MEDS ORDERED: Dexamethasone 10 MG in Sodium Chloride 0.9% 50 ML IVPB SCH (22:30)
[2020-10-22] MEDS: Mirtazapine 15 MG TAB PO SCH (22:31)
[2020-10-22] MEDS: levETIRAcetam 500 MG TAB PO SCH (22:31)
[2020-10-22] MEDS: Morphine 2 MG/ML VIAL SLOW IVP PRN (23:35)
[2020-10-23] MEDS: Lorazepam 2 MG/ML VIAL SLOW IVP PRN ×5 (00:30→23:31)
[2020-10-23 02:34] LABS: SARS-CoV-2 PCR by NAA Not Detected (NotDetected)
--- NOTE | 2020-10-23 06:54 | PDOC.FM ---
- Subjective Subjective: Mrs. Wiggins was in acute distress this morning. She was in soft restraints and requesting to be untied, stating her arms were hurting from them. She was resistant to answering my orientation questions stating "I already told all of y'all that". After removing her restraints, she was compliant with leaving her NC and PIV in place but was still writhing in bed. She is unable to say what is bothering her but does endorse pain in her arms from the restraints. She says she is cold but is throwing the blankets off. She wants to sit up but is uncomfortable with the bed being sat up. She is just in a general sense of distress. - Objective Vital Signs & Weight: Vital Signs (12 hours) Temp Pulse Resp BP Pulse Ox 10/23/20 00:00 97.6 F 132 H 20 151/94 H 93 L 10/22/20 22:30 124 H 10/22/20 20:00 98.3 F 124 H 18 103/78 100 Weight Weight 48.943 kg Result Diagrams: 10/23/20 05:48 10/23/20 05:48 Phys Exam - Physical Examination In acute distress, as described in hpi Neck: supple, full ROM Respiratory: clear to auscultation bilateral Gastrointestinal: no distention Musculoskeletal: no edema Neurological: non-focal, moves all 4 limbs Skin: no rash Dx/Plan - Plan Plan: Acute Encephalopathy 2/2 likely progression of known Brain Metastases -patient with known brain mets and likely progression of parietal lesion on CT brain -administer trial of loading dose of 10mg dexamethasone -pending reassessment of patient's symptoms may consider continuing dexamethasone 4mg q6h as this has helped patient in the past -NPO pending swallow eval by speech -Monitor for changes in neurologic status with q4h neuro checks -obtain MRI Brain WWO contrast today, with help of anesthesia -continue home Keppra given hx of seizures. Low suspicion that patient had true seizure this morning, per daughter's report. -Ativan prn for seizures or severe agitation -[place] for severe agitation Stage 4 Lung Cancer -with known Brain Metastases -Dexamethasone as above -Consult Oncology-Dr. Sarmiento called by ED, patient follows with Dr. Farfan, Oncology outpatient * Needs MRI to know if cancer is treatable -MRI brain WWO contrast to further characterize lesions, as this was planned for later this week in the OP setting. With help of anesthesia for sedation -has vocal cord compression 2/2 known lymphadenopathy, seen on recent imaging -Consult Palliative team for hospice discussion-patient previously DNAR but daughter who is MPOA wishes to keep patient FULL code until discussion today regarding hospice care Acute Otitis Media - d/c Levaquin d/t AMS and elevated liver enzymes, both of which can be caused by Levaquin - Start Rocephin instead x3 days - Will monitor for now Elevated liver enzymes - AST 196, ALT 236, Alk Phos 131 - Baseline is for all to be WNL - Will d/c Levaquin - RUQ U/S ordered Hypertension -Continue home meds -Monitor vitals and adjust as needed GERD -Continue home meds Anxiety -Continue home meds CKDIII Stable, admission Cr 1.10 -Will monitor Code status: Full, pending discussion with Palliative team tomorrow VTE ppx: none Diet: NPO pending speech eval PCP: Dr. Byers Primary MPOA: Bárbara Abrams (daughter), Secondary MPOA: Gertrude Gruber (sister), Dispo: Stable, admit to inpatient on medical/oncology unit. MRI pending. Possible transition to hospice. Anticipate LOS >48 hours. Addendum - Attending - Attending Attestation Date/Time: 10/23/20 1033 I personally evaluated the patient and discussed the management with Dr. Louis. I agree with the History, Examination, Assessment and Plan documented above with any addition or exceptions noted below. LFT elevation today. RUQ US negative. possibly 2/2 antibiotics. will change to rocephin. Geodon and ativan for agitation. awaiting oncology recommendations. she likely needs to transition to hospice.
[2020-10-23 07:11] LABS: ALT (SGPT) 236 U/L (8-55); AST (SGOT) 196 U/L (5-34); Albumin 3.5 g/dL (3.4-4.8); Alkaline Phosphatase 131 U/L (40-110); Anion Gap 17 mmol/L (10-20); BUN (Urea Nitrogen) 9 mg/dL (9.8-20.1); Bilirubin, Total 0.3 mg/dL (0.2-1.2); Calc. Creatinine Clearance 52 mL/min (70-130); Calcium 8.9 mg/dL (7.8-10.44); Carbon Dioxide 22 mmol/L (23-31); Chloride 101 mmol/L (98-107); Globulin 2.7 g/dL (2.4-3.5); Glucose 129 mg/dL (80-115); Protein, Total 6.2 g/dL (5.8-8.1); Sodium 136 mmol/L (136-145)
[2020-10-23 07:38] LABS: Band 1 % (5-11); Hemoglobin 12.2 g/dL (12.0-16.0); Lymphocytes 10 % (21-51); MDiff Complete? YES; Mean Corpuscular HGB CONC 32.5 g/dL (32.0-36.0); Mean Corpuscular Hemoglobin 29.8 pg (27.0-31.0); Mean Corpuscular Volume 91.6 fL (78.0-98.0); Mean Platelet Volume 6.9 fL (7.4-10.4); Neutrophil 89 % (42-75); Platelet Count 233 thou/uL (130-400); RBC Distribution Width 11.4 % (11.5-14.5); Red Blood Cell (RBC) Count 4.09 mill/uL (4.20-5.40); White Blood Cell (WBC) Count 9.1 thou/uL (4.8-10.8)
--- NOTE | 2020-10-23 09:00 | ULT ---
EXAM: Right upper quadrant ultrasound PROVIDED CLINICAL HISTORY: Transaminitis COMPARISON: None FINDINGS: Visualized portions of the pancreas and IVC appear normal. Liver demonstrates no mass or intrahepatic biliary ductal dilatation. Common duct is nondilated. Gallbladder is contracted and not well evaluated. Right kidney demonstrates no hydronephrosis or mass. IMPRESSION: Unremarkable right upper quadrant ultrasound.
[2020-10-23] MEDS ORDERED: Ziprasidone 20 MG VIAL IM PRN (10:10)
[2020-10-23] MEDS ORDERED: Cefdinir 300 MG CAP PO SCH (10:15)
[2020-10-23] MEDS: levETIRAcetam 500 MG TAB PO SCH ×2 (10:53→20:20)
[2020-10-23] MEDS: cefTRIAXone\\ROCEPHIN 1 GM in Sodium Chloride 0.9% 100 ML IVPB SCH (10:54)
[2020-10-23] MEDS ORDERED: Dexamethasone 20 MG/5 ML VIAL SLOW IVP SCH (12:00)
[2020-10-23] MEDS ORDERED: Sterile Water 10 ML ONE (14:58)
[2020-10-23] MEDS: Ziprasidone 20 MG VIAL IM PRN ×2 (15:04→23:31)
[2020-10-23] MEDS: Dexamethasone 4 mg/ml Vial SLOW IVP SCH (15:04)
[2020-10-23] MEDS: Morphine 2 MG/ML VIAL SLOW IVP PRN ×2 (16:13→20:19)
[2020-10-23] MEDS: Mirtazapine 15 MG TAB PO SCH (20:20)
[2020-10-23] MEDS: Lactated Ringer's 1,000 ML IV SCH (23:33)
--- NOTE | 2020-10-24 01:31 | CON ---
DATE OF CONSULTATION: 10/23/2020 REASON FOR CONSULTATION: Metastatic non-small cell carcinoma of the lung, admitted for seizure. HISTORY OF PRESENT ILLNESS: The patient is a 65-year-old woman with known stage IV adenocarcinoma of the lung, admitted for a seizure. She was ambulatory and independent until admission when she suffered a grand mal seizure, which brought her to the emergency room at the [facility]. A noncontrast CT scan there did show some evidence of a parietal metastatic lesion with some vasogenic edema. She was treated with steroids and anti-seizure medication has been initiated. She was transferred to the [facility] for further treatment. PAST MEDICAL HISTORY: Significant for known adenocarcinoma of the lung, initially diagnosed in 2015, followed by a right upper lobe lobectomy in 2017. She has had known metastasis to the brain and has undergone SRS in 2019 and twice in July 2020. She has also undergone palliative radiotherapy to the left humerus and has recently had evidence of progressive malignancy on a PET scan on September 17, 2020, showing a large right hilar mass, right axillary and subpectoral nodes, mediastinal and hilar lymphadenopathy, abdominal lymphadenopathy, and a solitary liver metastasis associated with probable left and right adrenal METS. She was being prepared for combination chemo/immunotherapy prior to this complication. I am asked to see the patient this time and provide further management recommendations. ALLERGIES: NONE. MEDICATIONS: BuSpar, ceftriaxone, Decadron, diltiazem, Keppra, Remeron, Protonix, and Ativan p.r.n. MEDICAL ILLNESS: There is a history of hypertension and gastroesophageal reflux. SURGERY: She has undergone foot tendon repair and bilateral lung wedge resections. FAMILY HISTORY: The patient's mother had liver disease and her dad had head and neck cancer. SOCIAL HISTORY: She has smoked 1/2 pack per day for 49 years. She does not use alcohol. She has used illicit drugs in the past including cocaine and marijuana. REVIEW OF SYSTEMS: Unobtainable at this time as she is agitated and not responsive to appropriately to questioning. PHYSICAL EXAMINATION: VITAL SIGNS: Temperature 97.6, pulse 122 and regular, respirations 20, O2 saturation 91%, blood pressure 122/88. GENERAL: She is agitated and poorly responsive to questioning. Her sister is present and assisting without ability to control her at this time. It is unclear whether she is oriented. HEENT: Extraocular movements are intact. The pupils are equal, round, and reactive to light. NECK: Supple. LUNGS: Clear. CARDIOVASCULAR: Regular rate and rhythm. ABDOMEN: Does show subcutaneous nodules in the epigastrium and periumbilical region, but the abdominal examination is limited secondary to her agitation. EXTREMITIES: No clubbing, cyanosis, or edema. SKIN: Normal. LYMPH: No adenopathy. MUSCULOSKELETAL: No active arthritis. NEUROLOGICAL: No focal findings and the cranial nerves 2 through 12 are grossly intact. Again, the exam is limited by poor cooperation. LABORATORY DATA: White blood cell count 9.1, hemoglobin 12.2, and platelet count 233,000. Chemistries are normal except for AST 196, ALT 236, and alkaline phosphatase 131. IMAGING: See history of present illness. The patient did undergo an abdominal ultrasound this morning, which was negative. IMPRESSION: 1. Metastatic non-small cell carcinoma of the lung, PDL-1, EGFR and ALK negative. 2. Progressive brain metastasis with seizure activity. RECOMMENDATIONS: I discussed the findings with the patient's sister. She will continue Decadron and radiation oncology will be consulted on Sunday. Systemic chemotherapy will be held for now until the extent of the central nervous system metastasis can be evaluated. An MRI of the brain will be required for further management decisions; hopefully, her condition will allow further imaging when she is more cooperative. Thanks very much for allowing me to provide more recommendations. Jeremiah Sarmiento MD Job ID: [id number] MTDD
[2020-10-24] MEDS: Morphine 2 MG/ML VIAL SLOW IVP PRN ×3 (01:42→17:59)
[2020-10-24] MEDS: Dexamethasone 4 mg/ml Vial SLOW IVP SCH ×2 (01:44→12:26)
--- NOTE | 2020-10-24 06:56 | PDOC.FM ---
- Subjective Subjective: Mrs. Wiggins was sleeping comfortably. Her sister and overnight sitter state it took her until about 4 or 5am to fall asleep. Her sister and daughter both understand Dr. Sarmiento' plan and would like to wait for the MRI results prior to deciding on hospice, which both are open to. Her sister says the plan is for her daughter to come up to visit today. - Objective MAR Reviewed: Yes Vital Signs & Weight: Vital Signs (12 hours) Temp Pulse Resp BP BP Pulse Ox 10/23/20 20:20 123 H 113/91 H 10/23/20 20:00 98.0 F 127 H 18 117/80 97 10/23/20 19:00 127 H 20 113/80 92 L Weight Admit Weight 48.943 kg Weight 48.943 kg Tachycardia stable. Other vitals are normal. Result Diagrams: 10/23/20 05:48 10/24/20 08:50 Phys Exam - Physical Examination Constitutional: NAD Neck: supple Respiratory: no wheezing, no rales, clear to auscultation bilateral Cardiovascular: RRR, no significant murmur Dx/Plan - Plan Plan: Acute Encephalopathy 2/2 likely progression of known Brain Metastases -patient with known brain mets and likely progression of parietal lesion on CT brain -Oncology, Dr. Sarmiento, following. * Recommends continuing decadron * Would like MRI for characterization of lesions to determine if therapy is possible * Will consult rad onc on Sunday -obtain MRI Brain WWO contrast on Sunday, with help of anesthesia -Diet provided per [facility] MEDICAL DIRECTOR recs -Monitor for changes in neurologic status with q4h neuro checks -continue home Keppra -Ativan prn for seizures or severe agitation. Will change Geodon to Haldol for more frequent dosing. Will attempt to avoid soft restraints Stage 4 Lung Cancer -with known Brain Metastases -Dexamethasone as above -Consult Oncology-Dr. Sarmiento called by ED, patient follows with Dr. Farfan, Oncology outpatient. See above -MRI, as above -Consult Palliative team for hospice discussion-patient previously DNAR but daughter who is MPOA wishes to keep patient FULL code until discussion today regarding hospice care Acute Otitis Media - d/c Levaquin (10/22-10/23) d/t AMS and elevated liver enzymes, both of which can be caused by Levaquin - Rocephin instead x3 days (10/23-10/26) - Will monitor for now Elevated liver enzymes - AST 196 > 89, ALT 236 > 142, Alk Phos 131 >116 - s/p d/c Levaquin - Baseline is for all to be WNL - RUQ U/S nml - Will continue to monitor Hypertension -Continue home meds -Monitor vitals and adjust as needed GERD -Continue home meds Anxiety -Continue home meds CKDIII -Baseline difficult to determine d/t wide range of values on previous adm issions, but Cr has remained low by comparison during this stay Code status: Full, pending discussion with Palliative team VTE ppx: none Diet: Diet of chopped solids and thick liquids, per [facility] DIRECTOR recs PCP: Dr. Byers Primary MPOA: Bárbara Abrams (daughter), Secondary MPOA: Gertrude Gruber (sister), Dispo: Stable, admit to inpatient on medical/oncology unit. MRI pending. Possible transition to hospice. Appreciate onc/rad onc recs. Anticipate LOS >48 hours. Addendum - Attending - Attending Attestation Date/Time: 10/24/20 1019 I personally evaluated the patient and discussed the management with Dr. Louis. I agree with the History, Examination, Assessment and Plan documented above with any addition or exceptions noted below. MRI likely tomorrow. continue palliative measures.
[2020-10-24] MEDS ORDERED: Ziprasidone 20 MG VIAL IM PRN (07:57)
[2020-10-24] MEDS ORDERED: Ziprasidone 20 MG CAP PO SCH (08:00)
[2020-10-24] MEDS ORDERED: Sterile Water 10 ML VIAL FS PRN (08:15)
[2020-10-24 09:20] LABS: ALT (SGPT) 142 U/L (8-55); AST (SGOT) 89 U/L (5-34); Albumin 3.6 g/dL (3.4-4.8); Alkaline Phosphatase 116 U/L (40-110); Anion Gap 17 mmol/L (10-20); BUN (Urea Nitrogen) 19 mg/dL (9.8-20.1); Bilirubin, Total 0.5 mg/dL (0.2-1.2); Calc. Creatinine Clearance 40 mL/min (70-130); Calcium 9.4 mg/dL (7.8-10.44); Carbon Dioxide 24 mmol/L (23-31); Chloride 101 mmol/L (98-107); Globulin 2.9 g/dL (2.4-3.5); Glucose 119 mg/dL (80-115); Potassium 3.8 mmol/L (3.5-5.1); Protein, Total 6.5 g/dL (5.8-8.1); Sodium 138 mmol/L (136-145)
[2020-10-24] MEDS: levETIRAcetam 500 MG TAB PO SCH ×2 (09:42→20:47)
[2020-10-24] MEDS: Lorazepam 2 MG/ML VIAL SLOW IVP PRN ×2 (09:42→20:46)
[2020-10-24] MEDS: cefTRIAXone\\ROCEPHIN 1 GM in Sodium Chloride 0.9% 100 ML IVPB SCH (12:12)
[2020-10-24] MEDS: Haloperidol Lactate 5 MG/ML VIAL SLOW IVP PRN ×2 (12:26→20:46)
[2020-10-24] MEDS: Lactated Ringer's 1,000 ML IV SCH (13:27)
[2020-10-24] MEDS: Mirtazapine 15 MG TAB PO SCH (20:47)
[2020-10-25] MEDS: Morphine 2 MG/ML VIAL SLOW IVP PRN ×3 (00:51→13:36)
[2020-10-25] MEDS: Dexamethasone 4 mg/ml Vial SLOW IVP SCH ×2 (00:54→12:01)
[2020-10-25] MEDS: Haloperidol Lactate 5 MG/ML VIAL SLOW IVP PRN (02:06)
[2020-10-25] MEDS: Lorazepam 2 MG/ML VIAL SLOW IVP PRN ×3 (02:06→16:10)
[2020-10-25] MEDS: Lactated Ringer's 1,000 ML IV SCH ×2 (02:07→20:16)
--- NOTE | 2020-10-25 06:42 | PDOC.FM ---
- Subjective Subjective: Per nursing, overnight patient appeared to be in pain with constant moaning. Otherwise no acute events. Respiratory status stable with dry cough. Daughter reports that she is coughing but doesn't seem to be able to cough sputum up. ROS unobtainable to be obtained from patient /2 mental status - Objective MAR Reviewed: Yes Vital Signs & Weight: Vital Signs (12 hours) Temp Pulse Resp BP BP Pulse Ox 10/24/20 20:47 131 H 133/89 10/24/20 20:34 97.5 F L 131 H 18 133/89 93 L 10/24/20 20:00 96 10/24/20 19:00 98.8 F 119 H 14 118/83 96 Weight Admit Weight 48.943 kg Weight 48.943 kg I&O: 10/23/20 10/24/20 10/25/20 06:59 06:59 06:59 Intake Total 120 Balance 120 Result Diagrams: 10/23/20 05:48 10/25/20 05:45 Phys Exam - Physical Examination Constitutional: NAD Diffuse rales/rhonchi/upper airway sounds throughout lung martins Cardiovascular: no significant murmur, no rub Tachycardia, regular Gastrointestinal: soft, non-tender, no distention, positive bowel sounds Dx/Plan - Plan Plan: Acute Encephalopathy / likely progression of known Brain Metastases - patient with known brain mets and likely progression of parietal lesion on CT brain - Oncology, Dr. Sarmiento, following. * Recommends continuing decadron * Would like MRI for characterization of lesions-anesthesia to help with MRI, Will consult rad onc on Sunday - Diet provided per AUTOMOTIVE INSTRUCTOR recs - q4h neuro checks - continue home Keppra - Ativan prn for seizures or severe agitation. - Haldol PRN for agitation, avoid soft restraints if possible - Consider increasing pain medication Stage 4 Lung Cancer - known Brain Metastases - Decadron as above - Oncology consulted - MRI, as above - Consult Palliative team for hospice discussion-patient previously DNAR but daughter who is MPOA wishes to keep patient FULL code until discussion regarding hospice care Acute Otitis Media - d/c Levaquin (10/22-10/23) d/t AMS and elevated liver enzymes - Rocephin instead x3 days (10/23-10/26) - Will monitor for now Elevated liver enzymes - AST 196 > 89, ALT 236 > 142, Alk Phos 131 >116 - s/p d/c Levaquin - Baseline is for all to be WNL - RUQ U/S nml - Will continue to monitor Hypertension -Continue home meds -Monitor vitals and adjust as needed GERD -Continue home meds Anxiety -Continue home meds CKDIII -Baseline difficult to determine d/t wide range of values on previous admissions, but Cr has remained low by comparison during this stay Code status: Full, pending discussion with Palliative team VTE ppx: none Diet: Diet of chopped solids and thick liquids, per AUTOMOTIVE INSTRUCTOR recs PCP: Dr. Byers Primary MPOA: Bárbara Abrams (daughter), Secondary MPOA: Gertrude Gruber (sister), Dispo: Stable, admit to inpatient on medical/oncology unit. MRI pending. Possib le transition to hospice. Appreciate onc/rad onc recs. Anticipate LOS >48 hours. Addendum - Attending - Attending Attestation Date/Time: 10/25/20 4710 I personally evaluated the patient and discussed the management with Dr. Mendiola. I agree with the History, Examination, Assessment and Plan documented above with any addition or exceptions noted below.
[2020-10-25 06:50] LABS: ALT (SGPT) 118 U/L (8-55); AST (SGOT) 48 U/L (5-34); Albumin 3.5 g/dL (3.4-4.8); Alkaline Phosphatase 105 U/L (40-110); Anion Gap 17 mmol/L (10-20); BUN (Urea Nitrogen) 26 mg/dL (9.8-20.1); Bilirubin, Total 0.5 mg/dL (0.2-1.2); Calc. Creatinine Clearance 51 mL/min (70-130); Carbon Dioxide 21 mmol/L (23-31); Chloride 102 mmol/L (98-107); Globulin 2.6 g/dL (2.4-3.5); Glucose 105 mg/dL (80-115); Potassium 3.7 mmol/L (3.5-5.1); Protein, Total 6.1 g/dL (5.8-8.1); Sodium 136 mmol/L (136-145)
[2020-10-25] MEDS: levETIRAcetam 500 MG TAB PO SCH ×2 (07:24→12:52)
[2020-10-25] MEDS ORDERED: Bisacodyl 10 MG SUPP PR PRN (09:13)
[2020-10-25] MEDS ORDERED: Senokot 8.6 MG TAB PO PRN (09:13)
[2020-10-25] MEDS ORDERED: Ziprasidone 20 MG VIAL IM PRN (10:46)
--- NOTE | 2020-10-25 11:09 | CON ---
DATE OF CONSULTATION: 10/25/2020 REASON FOR CONSULTATION: Ms. 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 HISTORY OF PRESENT ILLNESS: Ms. Wiggins is known to me. She was initially diagnosed with an adenocarcinoma of the right lung many years ago. She was treated with neoadjuvant chemotherapy for a while and in 2016, underwent surgery. She was disease free until 2018 when she was found to have two brain metastasis. Both were treated with radiosurgery on 01/24/2019. This was a right parietal and left parietal brain metastasis. She then was found to have later that year hypermetabolic activity and a recurrent nodule along the staple line in the right upper lobe and this was treated with radiation therapy. She subsequently was monitored until late in the fall of 2019 when she was found to have two new areas of brain metastasis. One was in the left occipital lobe and the other was in the right frontal lobe. Again, both areas were treated with radiosurgery. She also was found to have bone metastasis involving the left humerus. This was treated with palliative radiation therapy. More recently, plans have been for her to begin chemotherapy and immunotherapy. On recent staging CT scans and PET scan, she was found to have new hilar and subcarinal adenopathy as well as multiple lung nodules. She was also found to have liver metastasis and multiple nodules in the abdomen consistent with metastatic disease. However, several days ago, she had a seizure and was seen in the emergency room at [facility]. She had a CT scan of the head that suggested some slight worsening of the edema in the right parietal region. She was started on steroids and seizure medication and admitted for further workup and evaluation. It has been difficult to obtain history as she has been disoriented with altered mental status since that time. Most of the history I obtained by talking with her daughter. Her daughter reports that she was able to help her walk to the bathroom late yesterday evening. However, her daughter also notes that she has really not been moving her left arm. She has had difficulty with agitation and confusion and is now sleeping after receiving Ativan. PAST MEDICAL HISTORY: 1. Lung cancer as mentioned above. 2. Hypertension. 3. Chronic renal insufficiency. 4. GE reflux disease. 5. Status post bilateral tubal ligation. 6. Status post surgery on her foot and arm. MEDICATIONS: 1. Dexamethasone. 2. Diltiazem. 3. Haldol p.r.n. 4. Keppra. 5. Ativan p.r.n. 6. Remeron. 7. Protonix. 8. MiraLAX. ALLERGIES: NO KNOWN MEDICAL ALLERGIES. SOCIAL HISTORY: The patient was still smoking up to one-half pack per day. She also was drinking up to 2 to 3 beers per day. She lives with her in [place], [place]. Her daughter is at her bedside. FAMILY HISTORY: Her mother of liver cancer at age 74. Her father at age 83 of lung cancer. A sister at age 57 from lung cancer. REVIEW OF SYSTEMS: Unable to be obtained from the patient. PHYSICAL EXAMINATION: VITAL SIGNS: Height 5 feet 4 inches, weight 107 pounds, blood pressure 136/96, pulse is 121, respirations are 24, temperature is 97.7, O2 saturation is 90%. CONSTITUTIONAL: She is not alert. She is sleeping at the present time and does not really arouse to her name or by touch. NECK: Supple without cervical or supraclavicular adenopathy. No thyromegaly. LUNGS: Breathing mildly labored. Clear to auscultation. HEART: Tachycardic without murmur. No lower extremity edema. ABDOMEN: Bowel sounds present. Soft, nontender, nondistended. No mass or hepatosplenomegaly. Liver percusses to normal size. NEUROLOGIC: Again, the patient is not oriented and does not respond to commands. I cannot get her to spontaneously move her right side. She does not move her left arm. Difficult to tell if she is moving her left lower extremity. RADIOLOGIC DATA: CT scan of the head on admission was personally reviewed. This was done without contrast. She has some mild worsening of the edema in the right parietal area. There is no midline shift. There is no evidence of bleed. LABORATORY DATA: CBC revealed a white blood cell count of 9100 with a hemoglobin of 12.2, hematocrit of 37.5, and platelet count 233,000. Chemistry group showed a creatinine of 0.85. AST and ALT are mildly elevated, but improving. Her alkaline phosphatase is normal at 105. ASSESSMENT: Ms. Wiggins is a 65-year-old female with known metastatic adenocarcinoma of the lung. She has mediastinal adenopathy as well as previous bone and brain metastasis. She also has liver metastasis and abdominal metastasis on her last PET scan. She was admitted for altered mental status. PLAN: It is hoped that much of her mental status change is related to medication and also being postictal. I agree with the steroids and with seizure medication to control her seizures. She will need an MRI of the brain and this has already been scheduled. It is not certain to me whether she has had progression of her disease in her brain. This would only be able to be determined by an MRI. My guess is that the mental status changes are less likely to be from brain metastasis and more likely to be from seizure/postictal state and medication. She still has stage IV disease and has an overall poor prognosis. What we do from this point depends on how she responds to medical therapy/supportive therapy. Should she regain her orientation and mental status, then we could perhaps consider further therapy. Should she not regain this, then hospice care may be the most appropriate recommendation. I think the next 24 to 48 hours will be instrumental in determining our treatment course. We will follow up with her after the MRI of the brain is obtained. I did discuss this all with her daughter. Thank you for this interesting consultation. Job ID: [id number]
[2020-10-25] MEDS: cefTRIAXone\\ROCEPHIN 1 GM in Sodium Chloride 0.9% 100 ML IVPB SCH (12:00)
[2020-10-25] MEDS: Polyethylene Glycol 3350 17 GM Packet PO SCH (12:05)
[2020-10-25] MEDS: Senokot 8.6 MG TAB PO SCH (12:06)
--- NOTE | 2020-10-25 14:53 | PDOC.PALCO ---
Palliative Care Consult - Consult Details Requesting Physician: Dr Han Reason for Consult: goals of care, family support, complex decision-making Family Members Present: Bárbara Patient daughter and MPOA - Pertinent HPI 65 year old female with IV adenocarcinoma of the lung with subsequent brain metastasis. Onset of altered mental status 2-3 days prior to presentation to the emergency room that progressed with no relieving factors. She was seen by her PCP on 10/21 and given an antibiotic for acute ear infection. Family reports that altered mental status in the home was paired with a decrease in consciousness and EMS was called for transport. EMS transported initially to and CT identified progression of parietal lesions. Consult to Dr Sarmiento and patient was transferred to [facility] and admitted for further evaluation. Daughter reports that they were to follow up 10/[address] Farfan for MRI and to discuss Hospice. - Pertinent PMH Adenocarcinoma of lung IV with metastases to the brain, HTN, GERD, Anxiety - Social History Smoking Status: Current every day smoker Smoking: cigarettes Alcohol Use: rarely Drug Use History: other (remote history of marijuana and cocaine use) Living Situation: independent, - Medications MAR Reviewed: Yes - Allergies Allergies/Adverse Reactions: Allergies Allergy/AdvReac Type Severity Reaction Status Date / Time No Known Drug Allergies Allergy Verified 10/08/20 11:34 - Subjective Sleeping, mildly labored breathing, not arousable. Daughter to bedside - ROS Non Response: due to mental status - Objective Vital Signs: Vital Signs - Most Recent Temp Pulse Resp BP Pulse Ox 98.2 F 115 H 24 H 119/84 90 L 10/25/20 12:00 10/25/20 12:00 10/25/20 12:00 10/25/20 12:00 10/25/20 12:00 Palliative Performance Scale: 30 - Physical Exam Constitutional: cachectic, encephalitic, ill appearing HEENT: moist MMs Respiratory: no wheezing, labored respirations, tachypnea Cardiovascular: no significant murmur Gastrointestinal: soft, non-tender, positive bowel sounds Genitourinary: incontinent Musculoskeletal: no cyanosis, no clubbing Skin: cap refill <2 seconds, no lesions, no rash Deviation from normal: unable to assess orientation - Problem List (1) Palliative care encounter Code(s): Z51.5 - ENCOUNTER FOR PALLIATIVE CARE Current Visit: Yes Status: Acute (2) Acute encephalopathy Code(s): G93.40 - ENCEPHALOPATHY, UNSPECIFIED Current Visit: Yes Status: Acute (3) Metastatic cancer to brain Code(s): C79.31 - SECONDARY MALIGNANT NEOPLASM OF BRAIN Current Visit: Yes Status: Acute (4) Lung cancer Code(s): C34.90 - MALIGNANT NEOPLASM OF UNSP PART OF UNSP BRONCHUS OR LUNG Current Visit: Yes Status: Chronic Qualifiers: Laterality: unspecified laterality Lung location: unspecified part of lung Qualified Code(s): C34.90 - Malignant neoplasm of unspecified part of unspecified bronchus or lung (5) CKD (chronic kidney disease) stage 3, GFR 30-59 ml/min Code(s): N18.3 - CHRONIC KIDNEY DISEASE, STAGE 3 (MODERATE) * DO NOT USE * Current Visit: No Status: Acute - Plan/Recommendations Plan: Bárbara patient daughter to bedside. She hopes her mother can obtain an MRI. As discussed with Dr Sanchez, if patient able and an option would like to consider further therapy. If not then would like to further discuss transition to Hospice. Hopeful to wait 24 more hours to see if her mother improves in mentation. Bárbara has a copy of the MPOA and will bring in for medical records. She reports her mother is caring, larger than life and enjoys playing slot machines. Palliative care will follow and assist as needed to discuss goal of care. Please also refer to palliative care notes in note section [50] minutes spent on this encounter with >50% of the time in counseling and coordination of care. Thank you for this very appropriate consult.
[2020-10-25] MEDS ORDERED: Magnevist 469MG/ML 20 ML VIAL ONE (15:21)
[2020-10-25 18:01] LABS: Base Excess (BEa) -0.4 mEq/L (-2.0 to +3.0); CO2 Tension 30.1 mmHg (35.0-45.0); Calcium, Ionized (arterial) 1.18 mmol/L (1.12-1.30); Carboxyhemoglobin (COHb) 0.5 gm% (0.0-3.0); Hemoglobin (Hb) 14.6 g/dL (12.0-16.0); pH, Arterial 7.48 (7.35-7.45)
[2020-10-25] MEDS ORDERED: Morphine 2 MG/ML VIAL ONE (18:01)
[2020-10-25 18:04] LABS: O2 Tension (PaO2), arterial 54.6 mmHg (> 80.0); Puncture Site RRA
[2020-10-25 18:05] LABS: ALV-art Gradient 93.155 mmHg (0-20)
[2020-10-25] MEDS: levETIRAcetam in NS 500 MG in Premix Bag 1 BAG IVPB SCH (20:10)
[2020-10-25] MEDS: Ziprasidone 20 MG VIAL IM SCH (20:10)
[2020-10-25] MEDS: Mirtazapine 15 MG TAB PO SCH (20:35)
--- NOTE | 2020-10-25 20:59 | RAD ---
RADIOGRAPH CHEST 1 VIEW: Date: 10-25-2020 Time: 6:02 P.M. HISTORY: 65-year-old female in respiratory distress. COMPARISON: 10-22-2020 FINDINGS: Again noted is the very elevated right hemidiaphragm. Right subclavian implantable vascular access po rt. Prominent interstitial markings bilaterally, especially in the left lung. No cardiomegaly. Right parahilar/paramediastinal tumor mass. No interval change overall. IMPRESSION: 1. Right lung cancer. 2. Elevated right hemidiaphragm. 3. Mild diffuse nonspecific interstitial densities. 4. No interval change overall. JN POS: JIN
--- NOTE | 2020-10-25 22:30 | MRI ---
MRI BRAIN WITH AND WITHOUT CONTRAST: DATE: 10/25/2020 HISTORY: 65-year-old female with right upper lobe lung cancer metastatic to the brain presents with seizures. COMPARISON: 07/26/2020. TECHNIQUE: Multiple sequences obtained in axial, sagittal, and coronal planes; pre and post IV injection of gado linium-based contrast agent: 10 mL MultiHance. FINDINGS: There is a new finding of a broad region of gyriform restricted diffusion in the right parietal lobe cortex, extending into the right occipital gyri and right posterior temporal gyri laterally. This pro bably represents postictal changes. The underlying irregularly shaped rim-enhancing mass in the right parietal lobe previously described as 1.5 cm (1.5 x 2.0 x 1.7 cm) currently measures 1.7 x 1.4 x 1.2 cm, not significantly larger, but w ith greater degree of enhancement. The surrounding vasogenic edema has decreased. Again noted is the hemosiderin stain associated with this mass indicating prior hemorrhage. Previously, there were a few more additional small brain metastases, including a 0.6 cm left occipita l lesion and a 0.8 cm right frontal lesion. Currently, those particularly lesions are slightly smaller, but there are now a very large number of tiny new enhancing lesions throughout the bilateral cerebral hemispheres, especially at the cerebral convexity, most of them on the order of a couple of millimeters in size each. One of the larger new l esions is a 0.8 cm right lateral suprasylvian frontal lobe cortical lesion. Ventricles are normal in size and configuration. Moderate chronic ischemic white matter changes of the bilateral cerebrum and brainstem. No mass effect, midline shift, or extra-axial fluid collection. IMPRESSION: 1. Interval development of a very large number of new tiny cerebral metastases, a few mm in size eac h. 2. The right parietal brain metastasis has not grown, and the surrounding vasogenic edema has decrea sed. 3. New finding of a wide region of right cvlxuxm-aeosexe-xrrumrlgt restricted diffusion consistent w ith postictal changes. 4. No mass effect. SOHAM Garcia POS: INO
[2020-10-26] MEDS: Dexamethasone 4 mg/ml Vial SLOW IVP SCH ×2 (00:59→12:26)
[2020-10-26] MEDS: Morphine 2 MG/ML VIAL SLOW IVP PRN ×5 (02:09→10:38)
[2020-10-26] MEDS: Lorazepam 2 MG/ML VIAL SLOW IVP PRN ×4 (02:23→19:49)
--- NOTE | 2020-10-26 06:46 | PDOC.FM ---
- Subjective Subjective: Patient had episode of tachypnea/agitation yesterday afternoon before MRI resolved with morphine. MRI showing numerous new, small metastases. discussed with sister at bedside. Overall patient has been stable and getting morphine and ativan IV PRN. - Objective MAR Reviewed: Yes Vital Signs & Weight: Vital Signs (12 hours) Temp Pulse Resp BP Pulse Ox 10/26/20 06:10 97.6 F 120 H 20 118/78 96 10/26/20 00:57 97.4 F L 105 H 16 122/84 96 10/25/20 20:33 107 H 10/25/20 20:21 97.3 F L 107 H 18 132/93 H 96 10/25/20 20:00 94 L Weight Admit Weight 48.943 kg Weight 48.943 kg I&O: 10/24/20 10/25/20 10/26/20 06:59 06:59 06:59 Intake Total 120 Balance 120 Result Diagrams: 10/23/20 05:48 10/25/20 05:45 Phys Exam - Physical Examination Constitutional: NAD diffuse upper airway noises, no crackles, no wheezing Cardiovascular: no rub tachycardic Gastrointestinal: soft, non-tender, no distention, positive bowel sounds Dx/Plan - Plan Plan: Acute Encephalopathy 2/2 likely progression of known Brain Metastases - patient with known brain mets and likely progression of parietal lesion on CT brain - Oncology, Dr. Sarmiento, following. * Recommends continuing decadron * Would like MRI for characterization of lesions - Dr. Sanchez consulted, appreciate recs - Diet provided per WEB INTERFACE DEVELOPER recs - q4h neuro checks - continue home Keppra - Ativan prn for seizures or severe agitation. - Haldol PRN for agitation, avoid soft restraints if possible - Geodon ordered, refused last night - Consider increasing pain medication Stage 4 Lung Cancer - known Brain Metastases with more per MRI during stay - Decadron as above - Oncology consulted Acute Otitis Media - d/c Levaquin (10/22-10/23) d/t AMS and elevated liver enzymes - Rocephin instead x3 days (10/23-10/26) - Will monitor for now Elevated liver enzymes - AST 196 > 89, ALT 236 > 142, Alk Phos 131 >116 - s/p d/c Levaquin - Baseline is for all to be WNL - RUQ U/S nml - improving Hypertension -Continue home meds -Monitor vitals and adjust as needed GERD -Continue home meds Anxiety -Continue home meds CKDIII -Baseline difficult to determine d/t wide range of values on previous admissions, but Cr has remained low by comparison during this stay Code status: DNAR VTE ppx: none Diet: Diet of chopped solids and thick liquids, per WEB INTERFACE DEVELOPER recs PCP: Dr. Byers Primary MPOA: Bárbara Abrams (daughter), Secondary MPOA: Gertrude Gruber (sister), Dispo: Stable, admit to inpatient on medical/oncology unit. Possible transition to hospice. Appreciate onc/rad onc recs. Possible DC today. Addendum - Attending - Attending Attestation Date/Time: 10/26/20 4899 I personally evaluated the patient and discussed the management with Dr. Mendiola. I agree with the History, Examination, Assessment and Plan documented above with any addition or exceptions noted below. MRI confirms multiple brain mets. Transitioning to comfort measures and hospice care. Hopeful to discharge home once that can be arranged. Continue Keppra and p ain control as needed.
[2020-10-26] MEDS: Lactated Ringer's 1,000 ML IV SCH ×2 (07:25→10:41)
[2020-10-26] MEDS: Mirtazapine 15 MG TAB PO SCH ×2 (07:27→19:53)
[2020-10-26] MEDS: Polyethylene Glycol 3350 17 GM Packet PO SCH (07:51)
[2020-10-26] MEDS: Senokot 8.6 MG TAB PO SCH (07:52)
[2020-10-26 08:00] VITALS: BP 128/88; TEMP 97.8
[2020-10-26] MEDS: levETIRAcetam in NS 500 MG in Premix Bag 1 BAG IVPB SCH ×2 (08:19→19:53)
--- NOTE | 2020-10-26 09:48 | PRG ---
DATE OF SERVICE: 10/26/2020 SUBJECTIVE: Ms. Wiggins remains confused and at times agitated today. She is better with medication. However, she is unable to give a history at this point. I did discuss with her sister, who is at her bedside. The sister informs me that she has now become confined to the bed and is not ambulating, whereas more than 24 hours ago, she was still ambulating some. OBJECTIVE: VITAL SIGNS: Height 5 feet and 4 inches, weight 107 pounds. Blood pressure 128/88, pulse is 125, respirations are 24, temperature is 97.8, and O2 saturation is 95%. CONSTITUTIONAL: She remains confused. She occasionally follows commands, but this is infrequent. Her breathing is labored. Karnofsky performance status is 10. LUNGS: Breathing moderately labored. Clear to auscultation. CARDIOVASCULAR/HEART: Regular rate and rhythm without murmur. No lower extremity edema. ABDOMEN: Soft, nontender, and nondistended without mass or hepatosplenomegaly. NEUROLOGIC: She is not moving her left upper extremity. Right upper extremity moves normal. She appears to have weakness in the left lower extremity, but she is moving it some. She is moving her right lower extremity. Gait was not able to be tested. DIAGNOSTIC DATA: MRI shows numerous small brain metastasis. Her previously treated brain metastasis are about the same size. ASSESSMENT: Ms. Wiggins is a 65-year-old female with stage IV adenocarcinoma of the lung with liver and brain and soft tissue metastasis. PLAN: I had a long discussion with Ms. Wiggins and with her sister, who is at her bedside and also her daughter, who is her medical power of mergers and acquisitions attorney by telephone. I think unfortunately Ms. Wiggins continues to decline. She is not very responsive and is not able to undergo any kind of treatment. I think we are dealing with a fairly rapid fatal course. Because she is not in shape for any type of treatment and because treatment would likely not offer her any benefit, I do not think that radiation therapy would be helpful. My recommendation is for hospice care. Both the sister and the daughter are in agreement with this. I will communicate this to her Medical Team and Palliative Care Team and arrangements can be made for hospice care. Job ID: [id number] [facility]
--- NOTE | 2020-10-26 10:09 | PDOC.PALPN ---
Palliative Progress Note - Subjective Sleeping, opens eyes, non verbal. Appears confused, not able to participate in review of symptoms. Sister Gertrude at bedside. - Objective Vital Signs: Vital Signs - Most Recent Temp Pulse Resp BP Pulse Ox 97.8 F 125 H 24 H 128/88 95 10/26/20 07:59 10/26/20 07:59 10/26/20 07:59 10/26/20 07:59 10/26/20 07:59 - Physical Exam Constitutional: cachectic, confusion, emaciated, ill appearing HEENT: moist MMs, sclera anicteric Respiratory: no wheezing, labored respirations (Mildly labored) Cardiovascular: no significant murmur Gastrointestinal: soft, non-tender, positive bowel sounds, incontinent Genitourinary: incontinent Musculoskeletal: no cyanosis, no clubbing, no edema Skin: cap refill <2 seconds, fragile Deviation from normal: lethargic - Assessment (1) Palliative care encounter Code(s): Z51.5 - ENCOUNTER FOR PALLIATIVE CARE Current Visit: Yes Status: Acute (2) Acute encephalopathy Code(s): G93.40 - ENCEPHALOPATHY, UNSPECIFIED Current Visit: Yes Status: Acute (3) Metastatic cancer to brain Code(s): C79.31 - SECONDARY MALIGNANT NEOPLASM OF BRAIN Current Visit: Yes Status: Acute (4) Lung cancer Code(s): C34.90 - MALIGNANT NEOPLASM OF UNSP PART OF UNSP BRONCHUS OR LUNG Current Visit: Yes Status: Chronic Qualifiers: Laterality: unspecified laterality Lung location: unspecified part of lung Qualified Code(s): C34.90 - Malignant neoplasm of unspecified part of unspecified bronchus or lung (5) CKD (chronic kidney disease) stage 3, GFR 30-59 ml/min Code(s): N18.3 - CHRONIC KIDNEY DISEASE, STAGE 3 (MODERATE) * DO NOT USE * Current Visit: No Status: Acute - Plan Plan: Dr Bautista confirmed no further treatment options, he discussed with family this morning and communicated to myself and Dr Mendiola. Patient sister Gertrude at bedside, discussed end of life care. Emotional support offered. Family desires to transition to home setting to seek comfort through management of symptoms related to terminal condition, promoting optimal end of life care. Gertrude patient sister at bedside, patient daughter Bárbara driving in from [place] and should arrive at noon. Family [facility]. Case management notified. Palliative care, A Rob GUSMAN, to follow up once daughter here to facilitate completion of OOHDNAR. Communicated with Drs. Bautista and Maury. [45] minutes spent on this encounter with >50% of the time in counseling and coordination of care. - ROS Non Response: due to mental status
[2020-10-26] MEDS: cefTRIAXone\\ROCEPHIN 1 GM in Sodium Chloride 0.9% 100 ML IVPB SCH (10:38)
[2020-10-26] MEDS: Morphine 4 MG/ML VIAL SLOW IVP PRN ×2 (12:26→18:01)
--- NOTE | 2020-10-26 15:03 | PDOC.PALFU ---
Palliative Care Follow-up Note Palliative care will sign off. Goals of care addressed, patient to transition to home setting with Hospice. OOHDNAR prepared for physician signature. Thank you for this very appropriate consult.
[2020-10-26] MEDS: Ziprasidone 20 MG VIAL IM SCH (19:55)
--- NOTE | 2020-10-27 15:29 | DIS ---
DATE OF ADMISSION: 10/22/2020 DATE OF DISCHARGE: 10/26/2020 RESIDENT: Carson Mendiola MD ADMITTING ATTENDING: Dr. Darling. DISCHARGE ATTENDING: Dr. Pandey. CONSULTS: 1. Oncology, Dr. Sarmiento, 10/24/2020. 2. Dr. Sanchez, Radiation/Oncology, 10/25/2020. 3. Palliative Care, 10/25/2020. PROCEDURES: 1. The patient had an MRI of the brain on 10/25/2020 showing numerous multiple small new metastases as well as evidence of seizure in broad region of right parietal lobe cortex. 2. The patient had chest x-ray on admission and on 10/25/2020 showing right lung cancer with elevated right hemidiaphragm. Mild diffuse nonspecific interstitial densities, and overall, no interval change. PRIMARY DIAGNOSIS: Acute encephalopathy, likely due to progression of known brain metastases. SECONDARY DIAGNOSES: 1. Stage IV lung cancer. 2. Hypertension. 3. GERD. 4. Anxiety. 5. CKD stage 3. DISCHARGE MEDICATIONS: 1. Tylenol 650 mg suppository q.4 hours p.r.n. 2. Tylenol 650 mg p.o. q.4 hours p.r.n. 3. Dulcolax 10 mg p.o. q.8 hours p.r.n. 4. BuSpar 10 mg p.o. t.i.d. 5. Diltiazem 240 mg p.o. at bedtime. 6. Nexium 40 mg p.o. q.a.m. 7. [place] 5/325 one to two p.o. q.6 hours p.r.n. 8. Keppra 500 mg p.o. b.i.d. 9. Remeron 15 mg p.o. at bedtime. 10. MiraLAX 17 g p.o. daily p.r.n. 11. Lyrica 100 mg p.o. b.i.d. 12. Tizanidine 4 mg p.o. t.i.d. DISCONTINUED MEDICATIONS: The patient was discharged home on hospice, medication updates will be per hospice. HISTORY OF PRESENT ILLNESS/HOSPITAL COURSE: The patient is a 65-year-old female with known history of stage IV lung cancer with metastases to the brain, who presented with altered mental status and seizures that have become progressively worse. The patient was seen by primary care physician on 10/21 and treated with Levaquin for acute otitis media. The family was unsure if the patient had a seizure or not. The patient was previously seeing Dr. Farfan for oncological treatment. On admission, Oncology, Dr. Sarmiento was consulted, who recommended brain MRI to assess extent of disease. Also, recommended Dr. Sanchez with Radiation/Oncology to be consulted to give better idea of prognosis. MRI of the brain was finally able to be obtained on 10/25/2020, with results as above. Dr. Sanchez discussed with the patient that the treatment he could offer would likely not be effective. Given this, her family decided to move toward hospice care. Hospice was consulted from the hospital, who evaluated the patient. The patient was discharged with the care of hospice and further management per hospice. DISPOSITION: Poor. DISCHARGE INSTRUCTIONS: 1. Location: Home. 2. Diet: Regular, as tolerated. 3. Activity: As tolerated. 4. Followup: The patient will follow up with hospice care company and can see PCP, Dr. Byers, if other needs arise. Job ID: [id number]
== END 2020-10-26 20:45 | disposition home or self-care (01) | DRG 55 ==
LOC: T4-B 17:14 → OBSVTOIN 19:17
PROVIDERS: ADMIT Family Medicine; ATTEND Family Medicine
DX: C79.31 Secondary malignant neoplasm of brain (principal); C34.90 Malignant neoplasm of unspecified part of unspecified bronchus or lung; G93.40 Encephalopathy, unspecified; K21.9 Gastro-esophageal reflux disease without esophagitis; F41.9 Anxiety disorder, unspecified; N18.30 Chronic kidney disease, stage 3 unspecified; I12.9 Hypertensive chronic kidney disease with stage 1 through stage 4 chronic kidney disease, or unspecified chronic kidney disease; H66.90 Otitis media, unspecified, unspecified ear; Z79.899 Other long term (current) drug therapy; R74.8 Abnormal levels of other serum enzymes; Z79.2 Long term (current) use of antibiotics; Z98.890 Other specified postprocedural states; Z80.8 Family history of malignant neoplasm of other organs or systems; Z78.1 Physical restraint status; Z92.3 Personal history of irradiation; Z51.5 Encounter for palliative care; Z66 Do not resuscitate; Z20.822 Contact with and (suspected) exposure to COVID-19
CPT/HCPCS: 36415; 36600; 70553; 71045; 76705; 80053; 82805; 85007; 85027; 87635; A9579; J0696; J1100; J1630; J1953; J2060; J2270; J3486; J3490; U0003; U0005